=== PATIENT | male | born 1950 | race Two or more races ===

== ENCOUNTER → 2017-07-06 | Outpatient (CLI) | payer OTHER, MEDICARE | LOC: BHFA 09:15 | PROVIDERS: ATTEND Internal Medicine Cardiovascular Disease | DX: R01.1 Cardiac murmur, unspecified (principal); I10 Essential (primary) hypertension ==

== ENCOUNTER 2017-08-11 10:12 | Inpatient (IN) | payer OTHER, MEDICARE ==
--- NOTE | 2017-08-11 10:38 | EDPHY ---
HPI/HX/ROS/PE/MDM Narrative: CHIEF COMPLAINT: Shortness of breath HPI: The patient is an anticoagulated (Warfarin) 67 y/o male with a history of a-fib , pacemaker/defibrillator, CHF, and cardiomyopathy complaining of shortness of breath onset yesterday. He was recently placed on Indomethacin for gout. However , after taking Indomethacin he noticed increased edema, so he decided to see his debeader, Dr. Bedolla, on Monday, 2 days ago. At this time, Dr. Bedolla increased his Lasix prescription from 40mg BID to 80mg BID. Yesterday, the patient started to take the increased dosage of Lasix and subsequently became short of breath. This shortness of breath feels moderately similar to prior a-fib episodes. Denies cough, chest pain, numbness, paresthesias, abdominal pain, urinary or bowel complaints, fever. REVIEW OF SYSTEMS: Aside from elements discussed in the HPI, a comprehensive 10-point review of systems was reviewed and is negative. PMH: A-fib, pacemaker/defibrillator, CHF, cardiomyopathy SOCIAL HISTORY: Family at bedside, lives in [place], [facility] PHYSICAL EXAM: General: Patient is alert. ENT: Eyes are normal to inspection. ENT inspection normal. Neck: Normal inspection. Full range of motion. Respiratory: No respiratory distress. Breath sounds normal bilaterally. Cardiovascular: Regular rate and rhythm. Strong peripheral pulses. Normal cap refill. Abdomen: The abdomen is nontender to palpation. There are no peritoneal signs. There are normal bowel sounds. Back: Normal to inspection. No tenderness to palpation. Skin: Normal color. No rash. Warm and dry. Extremities: Bilateral 1-2+ pedal edema. Full range of motion. Neuro: Oriented x3. Normal motor function. Normal sensory function. ED Course: 1038: EKG was ordered and interpreted by myself. Please see [employer] system for official reading. 1206: Reassessed patient and discussed imaging and laboratory findings.The patient has an elevated BNP of 1450. Echocardiogram ordered. 1301: Consulted with Dr. Soto, debeader, regarding this patient. He reports that the echo reveals elevated right-sided heart pressures. He agrees to consult on this patient during his admission. 1303: Reassessed patient and discussed imaging and laboratory findings. He is comfortable with plan for admission. 1329: Consulted with hospitalist service, Dr. Oglesby accepts admission of this patient for patient's CHF exacerbation. MDM: This patient presents with signs and symptoms concerning for volume overload/ CHF exacerbation. His echo shows acute worsening of pulmonary HTN, but PE seems unlikely as d-dimer is negative and patient is anticoagulated. Cardiology recommends admission to the hospital for further workup and diuresis. - Data Points Imaging Results: Imaging Impressions Chest X-Ray 08/11/17 11:14 Impression: 1. Cardiomegaly and pulmonary venous hypertension. No sunny failure. 2. Bronchitis versus peribronchial cuffing due to early interstitial edema. Imaging: I viewed and interpreted images myself Laboratory Results: Laboratory Results 08/11/17 10:44 08/11/17 10:44 08/11/17 08/11/17 08/11/17 10:44 10:44 10:44 WBC RBC Hgb Hct MCV MCH MCHC RDW Plt Count MPV Neut % (Auto) Lymph % (Auto) [place] % (Auto) Eos % (Auto) Baso % (Auto) Nucleat RBC Rel Count Absolute Neuts (auto) Absolute Lymphs (auto) Absolute Monos (auto) Absolute Eos (auto) Absolute Basos (auto) Absolute Nucleated RBC Immature Gran % Immature Gran # PT INR APTT D-Dimer Cancelled Sodium 146 mEq/L H mEq/L (135-145) Potassium 3.7 mEq/L mEq/L (3.3-5.0) Chloride 103 mEq/L mEq/L (97-110) Carbon Dioxide 29 mEq/l mEq/l (22-31) Anion Gap 14 mEq/L mEq/L (8-16) BUN 25 mg/dL H mg/dL (7-23) Creatinine 1.3 mg/dL mg/dL (0.7-1.3) Estimated GFR 55 Glucose 118 mg/dL H mg/dL (70-100) Calcium 9.2 mg/dL mg/dL (8.5-10.4) Troponin I < 0.012 ng/mL ng/mL (0.000-0.034) NT-Pro-B Natriuret Pep Cancelled 1450 pg/mL H pg/mL (0-125) 08/11/17 08/11/17 10:44 10:44 WBC 9.04 10^3/uL 10^3/uL (3.80-9.50) RBC 4.95 10^6/uL 10^6/uL (4.40-6.38) Hgb 13.9 g/dL g/dL (13.7-17.5) Hct 43.1 % % (40.0-51.0) MCV 87.1 fL fL (81.5-99.8) MCH 28.1 pg pg (27.9-34.1) MCHC 32.3 g/dL L g/dL (32.4-36.7) RDW 15.4 % H % (11.5-15.2) Plt Count 149 10^3/uL L 10^3/uL (150-400) MPV 11.0 fL fL (8.7-11.7) Neut % (Auto) 76.1 % H % (39.3-74.2) Lymph % (Auto) 12.7 % L % (15.0-45.0) [place] % (Auto) 9.6 % % (4.5-13.0) Eos % (Auto) 1.0 % % (0.6-7.6) Baso % (Auto) 0.4 % % (0.3-1.7) Nucleat RBC Rel Count 0.0 % % (0.0-0.2) Absolute Neuts (auto) 6.87 10^3/uL H 10^3/uL (1.70-6.50) Absolute Lymphs (auto) 1.15 10^3/uL 10^3/uL (1.00-3.00) Absolute Monos (auto) 0.87 10^3/uL H 10^3/uL (0.30-0.80) Absolute Eos (auto) 0.09 10^3/uL 10^3/uL (0.03-0.40) Absolute Basos (auto) 0.04 10^3/uL 10^3/uL (0.02-0.10) Absolute Nucleated RBC 0.00 10^3/uL 10^3/uL (0-0.01) Immature Gran % 0.2 % % (0.0-1.1) Immature Gran # 0.02 10^3/uL 10^3/uL (0.00-0.10) PT 24.2 SEC H SEC (12.0-15.0) INR 2.17 H (0.83-1.16) APTT 38.8 SEC H SEC (23.0-38.0) D-Dimer 0.33 ug/mLFEU ug/mLFEU (0.00-0.50) Sodium Potassium Chloride Carbon Dioxide Anion Gap BUN Creatinine Estimated GFR Glucose Calcium Troponin I NT-Pro-B Natriuret Pep General Time Seen by Provider: 08/11/17 10:34 Initial Vital Signs: Initial Vital Signs Temperature (C) 36.6 C 08/11/17 10:16 Heart Rate 75 08/11/17 10:16 Respiratory Rate 19 08/11/17 10:16 Blood Pressure 140/77 H 08/11/17 10:16 O2 Sat (%) 89 L 08/11/17 10:16 O2 Delivery Mode Nasal Cannula O2 (L/minute) 2 Allergies/Adverse Reactions: indomethacin Allergy (Verified 08/11/17 10:14) Home Medications: Medication Instructions Recorded Atorvastatin Calcium [Lipitor 10 10 mg PO DAILY 08/11/17 mg (*)] Dronedarone HCl [Multaq 400 mg (*)] 400 mg PO BIDMEAL 08/11/17 Mesalamine [Apriso 0.375 gm] 1.5 gm PO DAILY 08/11/17 Metoprolol Succinate Xr [Toprol Xl 50 mg PO DAILY 08/11/17 50 mg (*)] Pantoprazole Sodium [Protonix 40mg 40 mg PO DAILY 08/11/17 (*)] Potassium Cl [Klor-Con 10 meq (RX)] 10 meq PO BID@08/11/17 Warfarin Sodium [Coumadin 1MG (*)] 1.5 mg PO SUMOTUWETHFR@08/11/17 Warfarin Sodium [Coumadin] 1 mg PO SA@08/11/17 Furosemide [Lasix 40 MG (*)] 60 mg PO BID@ #60 tab 08/12/17 predniSONE 20 mg PO DAILY #3 tab 08/12/17 Departure - Departure Disposition: [facility] Inpatient Acute Clinical Impression: Shortness of breath, Pulmonary hypertension CHF exacerbation Qualifiers: Heart failure type: right-sided Qualified Code(s): I50.813 - Acute on chronic right heart failure Condition: Fair Report Scribed for: Marino Davila Report Scribed by: Dina Olguin Date of Report: 08/11/17 Time of Report: 10:44 Physician Review and Approval Statement: Portions of this note were transcribed by an ED scribe. I personally performed the history, physical exam, and medical decision making; and confirm the accuracy of the information in the transcribed note.
--- NOTE | 2017-08-11 10:40 | CPEKG ---
Heart Rate: 75 RR Interval: 800 P-R Interval: 220 QRSD Interval: 102 QT Interval: 460 QTC Interval: 514 P [place]: 226 QRS [place]: -1 T Wave [place]: 120 EKG Severity - ABNORMAL ECG - EKG Impression: INDETERMINATE SUPRAVENTRICULAR RHYTHM EKG Impression: ABNORMAL T, CONSIDER ISCHEMIA, LATERAL LEADS EKG Impression: PROLONGED QT INTERVAL Electronically Signed By: Warner Peterson 16-Aug-2017 11:50:16
[2017-08-11 10:51] LABS: PLATELET COUNT 149 10^3/uL (150-400)
[2017-08-11 10:59] LABS: INR 2.17 (0.83-1.16); PROTIME(PATIENT) 24.2 SEC (12.0-15.0)
--- NOTE | 2017-08-11 14:02 | ECHO ---
[email or web address] [address] Main: [phone] Fax: Transthoracic Echocardiogram Name: DULCE LIU MR#: [id number] Study Date: 08/11/2017 Study Time: 12:39 PM Date of : 1950 Age: 67 year(s) Height: 180.3 cm (71 in.) Weight: 86.18 kg (190 lb.) BSA: 2.06 m2 Gender: Male Examination: Limited Echo Indication: New SOB, Pacemaker/Defibrillator Image Quality: Contrast: Requested by: Marino Davila BP: 121 mmHg/98 mmHg Heart Rate: Rhythm: Indication: New SOB, Pacemaker/Defibrillator Procedure Staff Refrigerator Room Clerk: Parmjit Garcia RDCS Reading Physician: Dwain Robison MD Requesting Provider: Conclusions: No pericardial effusion. Concentric asymmetric left ventricular hypertrophy. Pacemaker in the right ventricle. Estimated right ventricular systolic pressure 47 mm of mercury significantly changed from July 06. Normal RV systolic function. Measurements: Chambers Valvular Assessment AV/MV Valvular Assessment TV/PV Normal Normal Normal Name Value Range Name Value Range Name Value Range IVSd (2D): 1.4 cm (0.6 cm-1.1 TR Vmax: 3.24 mm/s ( - ) cm) TR PGmax: 42 mmHg ( - ) LVDd (2D): 4.0 cm (4.2 cm-5.9 syst. PAP: 47 mmHg ( - ) cm) LVDs (2D): 2.8 cm (2.1 cm-4 cm) LVPWd (2D): 1.2 cm (0.6 cm-1 cm) LVEF (2D): 57 (>=54 %) Continued Measurements: Valvular Assessment TV/PV Name Value CVP (est.): 5 mmHg Findings: Left Ventricle: Normal size left ventricle. Normal global systolic LV function. EF is 57 %. There is known severe asymmetrical LVH noted.. Right Ventricle: Patient: DULCE ILU Study Date: 08/11/2017 Page 1 of 2 12:39 PM There is a pacemaker lead noted in the right ventricle. Flattened interventricular septum consistent with right ventricular pressure and/or volume overload free wall. Left Atrium: The left atrium is mildly dilated. Aortic Valve: Mild aortic valve regurgitation is present. Tricuspid Valve: The previous exam of 07/06/17 displayed a RVSP of 25 mmHg. The current RVSP is 47 mmHg.. Exam Comments: This is a limited echo to evaluate LV/RV function. Compared to the previous exam of 07/06/17 the pulmonary pressures have increased to 47 mmHg from 25 mmHg.. (No Signature Object) Patient: DULCE LIU Study Date: 08/11/2017 Page 2 of 2 12:39 PM [id number]
[2017-08-11] MEDS ORDERED: FUROSEMIDE 100 MG/10 ML VIAL IVP ONE (15:10)
[2017-08-11] MEDS ORDERED: oxyCODONE IR 5 MG TAB PO PRN (15:31)
[2017-08-11] MEDS ORDERED: ACETAMINOPHEN 325 MG TAB PO PRN (15:31)
[2017-08-11] MEDS ORDERED: ALBUTEROL 3 ML DEYVIAL IH PRN (15:31)
--- NOTE | 2017-08-11 15:52 | PDGENHP ---
History and Physical - Chief Complaint SOB - History of Present Illness : The patient is an anticoagulated (Warfarin) 67 y/o male with a history of a-fib , pacemaker/defibrillator, CHF, and cardiomyopathy complaining of shortness of breath onset yesterday. He was recently placed on Indomethacin for gout. However , after taking Indomethacin he noticed increased edema, so he decided to see his wellness trainer, Dr. Bedolla, on Monday, 2 days ago. At this time, Dr. Bedolla increased his Lasix prescription from 40mg BID to 80mg BID. Despite the increase the pt c/o SOB, increased leg swelling and increased abd distention. Cards has seen the patient in the ER and he will be admitted for diuresis and further mgmt. Denies cough, chest pain, numbness, paresthesias, abdominal pain, urinary or bowel complaints, fever. PMH: A-fib, pacemaker/defibrillator, CHF, cardiomyopathy SOCIAL HISTORY: Family at bedside, lives in [place], retired FMHX: non contributory Echo: shows increased right sided pressure of 47mmHg CXR c/w pulm edema (personally interpreted) EKG: prolonged QT History Information - Allergies/Home Medication List Allergies/Adverse Reactions: indomethacin Allergy (Verified 08/11/17 10:14) Home Medications: Atorvastatin Calcium [Lipitor 10 mg (*)] 10 mg PO DAILY 08/11/17 [Last Taken ] Dronedarone HCl [Multaq 400 mg (*)] 400 mg PO BIDMEAL 08/11/17 [Last Taken 08/11] Furosemide [Lasix 40 MG (*)] 40 mg PO BID@08/11/17 [Last Taken 08/11/17 09 :00] Lisinopril [Zestril 20 mg (*)] 20 mg PO DAILY 08/11/17 [Last Taken 08/11/17] Mesalamine [Apriso 0.375 gm] 1.5 gm PO DAILY 08/11/17 [Last Taken 08/11/17] Metoprolol Succinate Xr [Toprol Xl 50 mg (*)] 50 mg PO DAILY 08/11/17 [Last Taken 08/11/17] Pantoprazole Sodium [Protonix 40mg (*)] 40 mg PO DAILY 08/11/17 [Last Taken ] Potassium Cl [Klor-Con] 10 meq PO BID@08/11/17 [Last Taken 08/11/17 09:00] Warfarin Sodium [Coumadin 2.5MG (*)] 2.5 mg PO SUMOTUWETHFR@08/11/17 [Last Taken 08/10/17] Warfarin Sodium [Coumadin 2MG (*)] 2 mg PO SA@08/11/17 [Last Taken 08/05/17] I have personally reviewed and updated: medical history, social history - Social History Smoking Status: Never smoked Review of Systems Review of Systems: ROS: 10pt was reviewed & negative except for what was stated in HPI & below Physical Exam Physical Exam: Temp Pulse Resp BP Pulse Ox 36.5 C 101 H 20 121/71 H 92 08/11/17 12:00 08/11/17 13:55 08/11/17 13:55 08/11/17 13:55 08/11/17 13:55 O2 (L/minute) 2 Constitutional: no apparent distress Eyes: PERRL, EOMI Ears, Nose, Mouth, Throat: moist mucous membranes Cardiovascular: JVD, edema Respiratory: no respiratory distress, reduced air movement Gastrointestinal: normoactive bowel sounds, distension Skin: warm Musculoskeletal: full muscle strength Neurologic: AAOx3 Psychiatric: interacting appropriately, not anxious, not encephalopathic Lymph, Heme, Immunologic: No petechiae Lab Data & Imaging Review 08/11/17 10:44 08/11/17 10:44 WBC 9.04 10^3/uL (3.80-9.50) 08/11/17 10:44 RBC 4.95 10^6/uL (4.40-6.38) 08/11/17 10:44 Hgb 13.9 g/dL (13.7-17.5) 08/11/17 10:44 Hct 43.1 % (40.0-51.0) 08/11/17 10:44 MCV 87.1 fL (81.5-99.8) 08/11/17 10:44 MCH 28.1 pg (27.9-34.1) 08/11/17 10:44 MCHC 32.3 g/dL (32.4-36.7) L 08/11/17 10:44 RDW 15.4 % (11.5-15.2) H 08/11/17 10:44 Plt Count 149 10^3/uL (150-400) L 08/11/17 10:44 MPV 11.0 fL (8.7-11.7) 08/11/17 10:44 Neut % (Auto) 76.1 % (39.3-74.2) H 08/11/17 10:44 Lymph % (Auto) 12.7 % (15.0-45.0) L 08/11/17 10:44 [place] % (Auto) 9.6 % (4.5-13.0) 08/11/17 10:44 Eos % (Auto) 1.0 % (0.6-7.6) 08/11/17 10:44 Baso % (Auto) 0.4 % (0.3-1.7) 08/11/17 10:44 Nucleat RBC Rel Count 0.0 % (0.0-0.2) 08/11/17 10:44 Absolute Neuts (auto) 6.87 10^3/uL (1.70-6.50) H 08/11/17 10:44 Absolute Lymphs (auto) 1.15 10^3/uL (1.00-3.00) 08/11/17 10:44 Absolute Monos (auto) 0.87 10^3/uL (0.30-0.80) H 08/11/17 10:44 Absolute Eos (auto) 0.09 10^3/uL (0.03-0.40) 08/11/17 10:44 Absolute Basos (auto) 0.04 10^3/uL (0.02-0.10) 08/11/17 10:44 Absolute Nucleated RBC 0.00 10^3/uL (0-0.01) 08/11/17 10:44 Immature Gran % 0.2 % (0.0-1.1) 08/11/17 10:44 Immature Gran # 0.02 10^3/uL (0.00-0.10) 08/11/17 10:44 PT 24.2 SEC (12.0-15.0) H 08/11/17 10:44 INR 2.17 (0.83-1.16) H 08/11/17 10:44 APTT 38.8 SEC (23.0-38.0) H 08/11/17 10:44 D-Dimer 0.33 ug/mLFEU (0.00-0.50) 08/11/17 10:44 Sodium 146 mEq/L (135-145) H 08/11/17 10:44 Potassium 3.7 mEq/L (3.3-5.0) 08/11/17 10:44 Chloride 103 mEq/L (97-110) 08/11/17 10:44 Carbon Dioxide 29 mEq/l (22-31) 08/11/17 10:44 Anion Gap 14 mEq/L (8-16) 08/11/17 10:44 BUN 25 mg/dL (7-23) H 08/11/17 10:44 Creatinine 1.3 mg/dL (0.7-1.3) 08/11/17 10:44 Estimated GFR 55 08/11/17 10:44 Glucose 118 mg/dL (70-100) H 08/11/17 10:44 Calcium 9.2 mg/dL (8.5-10.4) 08/11/17 10:44 Troponin I < 0.012 ng/mL (0.000-0.034) 08/11/17 10:44 NT-Pro-B Natriuret Pep 1450 pg/mL (0-125) H 08/11/17 10:44 Assessment & Plan Assessment: #CHF exacerbation (Acute) #Pulmonary hypertension (Acute) #Acute Respiratory Failure #Pedal Edema #Prolonged QT #Afib with PPM #chronic AC with adequate INR Plan Admit IV Lasix appropriate home meds avoid meds that cause QT prolongation Coumadin Full code
--- NOTE | 2017-08-11 16:04 | GCON ---
[f rep st] CONSULTATION CARDIOLOGY CONSULTATION. DATE OF CONSULTATION: 08/11/2017 REASON FOR CONSULTATION: We were asked by Dr. Davila of [facility] to evaluate the patient for his congestive heart failure. HISTORY OF PRESENT ILLNESS: The patient is a 67-year-old male who is being admitted due to acute masha stolic CHF. He was recently seen by his PCPs office for pain in his right foot and was diagnosed wit h gout. He was given indomethacin for this. After that, he noted a 5-6 pound weight gain with lower extremity edema and dyspnea on exertion. He saw Dr. Bedolla in clinic on August 09. At that time, Dr Jerrod Bedolla increased his Lasix from 40 twice daily to 80 twice daily. Despite this increase, he starte d to note worsening dyspnea, edema and weight gain. [facility] On arrival, he was noted to be hypoxic with an O2 saturation of 84%. He is now being admitted f or treatment of his acute diastolic CHF. Other past medical history is inclusive of paroxysmal atria l fibrillation on warfarin therapy, hypertrophic cardiomyopathy with prophylactic ICD implantation, n onobstructive coronary artery disease, hypertension, dyslipidemia, aortic insufficiency. He denies any other changes to his health. He has not had any fever, chills, changes to his diet or missing medications. PAST MEDICAL HISTORY: 1. Hypertrophic cardiomyopathy with a prophylactic ICD. 2. Hypertension. 3. Dyslipidemia. 4. Aortic insufficiency. 5. Hypertension. 6. Paroxysmal atrial fibrillation. MEDICATIONS: Outpatient medications include warfarin, ferrous sulfate, Lasix, Lipitor, lisinopril, M ultaq, potassium, Protonix, metoprolol succinate 50 mg p.o. daily. ALLERGIES: Now listed as indomethacin. FAMILY HISTORY: Arrhythmias, hypertension, dyslipidemia, and MIs. SOCIAL HISTORY: Patient is . His is present in the room. His daughter is also present. He denies any alcohol or tobacco use. REVIEW OF SYSTEMS: As per HPI. A complete 10-point review of systems was obtained and is negative e xcept for what is dictated. PHYSICAL EXAMINATION: VITAL SIGNS: BP of 121/71, heart rate of 101, respirations 20, O2 saturation 92% on room air, temperature of 97.7 degrees Fahrenheit. GENERAL: He is a very pleasant male in no apparent distress. HEENT: Normocephalic, atraumatic. Eyes are PERRL without scleral icterus. HEAR T: Regular rate and rhythm without rubs, gallops, or murmurs. LUNGS: Mildly diminished without rho nchi. Minimal crackles at bases. ABDOMEN: Distended, nontender with normoactive bowel sounds. SKI N: Warm and dry with mild to moderate pedal and ankle edema. PSYCH: Normal mood and affect. : No [place] present. MUSCULOSKELETAL: Without any gross deformities present. LABORATORY DATA: CBC with WBC 9.04, hemoglobin 13.9, hematocrit 43.1, platelet count 149. INR of 2. 17. BMP with sodium 146, potassium 3.7, chloride 103, CO2 29, BUN 25, creatinine 1.3, glucose of 118 . NT-ProBNP of 1450. Troponin less than 0.012. A 12-lead ECG personally interpreted demonstrates si nus rhythm with a prolonged MT interval with a first-degree AV block. QTc prolonged at 514, diffuse ST-T wave abnormalities and LAFB present. Chest x-ray images personally reviewed, shows cardiomegaly with pulmonary venous hypertension and interstitial edema. 08/11/2017, echo shows normal LVEF, conc entric asymmetric left ventricular hypertrophy, pacer in the right ventricle. Estimated RVSP of 47 m mHg which is a significant change from July 06 echo from our office. I spoke with Dr. Davila ab out patient's care. IMPRESSION AND PLAN: 1. Diastolic congestive heart failure. Patient presents with diastolic congestive heart failure as evidenced by now pulmonary hypertension, pulmonary edema, peripheral edema, jugular venous distention , rales, abdominal distention and worsening dyspnea on exertion. His BNP is also elevated at this ti me. At this time, we will plan to admit patient for IV diuresis. He has been on p.o. Lasix and pote ntially that could be his outpatient medicine. However, given his abdominal distention it maybe that he is not able to absorb p.o. Lasix as well and potentially he could be switched to Demadex for his outpatient regimen. He is advised to avoid non-steroidal anti-inflammatories for treatment of gout i n the future. 2. He has known coronary artery disease with a cardiac catheterization in 2016. This showed no sign ificant blockages. He can continue medical management at this point. 3. Paroxysmal atrial fibrillation. His ECG thus far shows sinus rhythm. He is managed with rhythm control with Multaq and anticoagulation with warfarin. 4. Hypertension. Blood pressures are mild to moderately elevated. He may need adjustment of his me dication regimen prior to discharge. We will monitor his blood pressure serially. 5. New onset pulmonary hypertension. We discussed possible etiology is untreated sleep apnea. This can be worked up as an outpatient. 6. Mild aortic insufficiency. He has mild aortic insufficiency, which can be followed with serial e choes in the future. 7. Dyslipidemia. His home atorvastatin may be continued as at present. 8. The patient will require inpatient status for diuresis and optimization of medical therapies. /[id number]/MODL
--- NOTE | 2017-08-11 17:40 | PDMN ---
Medical Necessity Medical necessity: C/M review: est. > 2 MN LOS for eval and TX of acute - CHF exacerbation, pulmonary hypertension, respiratory failure, pedal edema, prolonged QT requiring Cardiology consult, ongoing IV Lasix, avoid medications that cause QT prolongation, cardiac monitoring, pulse oximetry, supplemental O2 , comorbid history of atrial fibrillation with permanent pacemaker / defibrillator, chronic anticoagulation with adequate INR, CHF, cardiomyopathy per H/P.
[2017-08-11] MEDS: POTASSIUM CL 10 MEQ TAB PO SCH (18:25)
[2017-08-11] MEDS: DRONEDARONE HCL 400 MG TAB PO SCH (18:26)
[2017-08-11] MEDS ORDERED: WARFARIN SODIUM 2.5 MG TAB PO SCH (21:00)
[2017-08-11] MEDS ORDERED: WARFARIN SODIUM 1 MG TAB PO SCH (21:00)
[2017-08-12 04:24] LABS: PLATELET COUNT 153 10^3/uL (150-400)
[2017-08-12] MEDS: DRONEDARONE HCL 400 MG TAB PO SCH (08:50)
[2017-08-12] MEDS: POTASSIUM CL 10 MEQ TAB PO SCH (08:50)
[2017-08-12] MEDS: FUROSEMIDE 100 MG/10 ML VIAL IVP SCH ×2 (08:52→15:53)
[2017-08-12] MEDS ORDERED: ATORVASTATIN CALCIUM 10 MG TAB PO SCH (09:00)
[2017-08-12] MEDS ORDERED: MESALAMINE PO SCH (09:00)
[2017-08-12] MEDS ORDERED: PANTOPRAZOLE SODIUM 40 MG TAB PO SCH (09:00)
[2017-08-12] MEDS ORDERED: METOPROLOL SUCCINATE XR 50 MG TAB PO SCH (09:00)
[2017-08-12] MEDS ORDERED: LISINOPRIL 20 MG TAB PO SCH (09:00)
[2017-08-12 11:30] LABS: INR 2.15 (0.83-1.16)
[2017-08-12 12:01] VITALS: BP 102/62
--- NOTE | 2017-08-12 12:09 | SOAPPROG ---
[facility] Progress Note Assessment/Plan: Assessment: Plan: 08/12/17 12:08 1. Diastolic heart failure The patient is doing very well today. He wants to go home at this point time. He is going to follow up with Dr. Bedolla or Kimberly Barrios at [facility] He had negative coronary angiogram in 2016. I have discussed his case with the patient I have talked to the hospitalist. We are going to sign off and the patient is being sent home today. I have answered all the patient's questions. There is no charge for this visit. Objective: Vital Signs Temp Pulse Resp BP Pulse Ox 36.6 C 75 18 102/62 93 08/12/17 12:00 08/12/17 12:00 08/12/17 12:00 08/12/17 12:00 08/12/17 12:00 Laboratory Results 08/12/17 00:40 08/12/17 00:40 08/11/17 08/12/17 08/13/17 05:59 05:59 05:59 Intake Total 500 500 Output Total 1800 950 Balance -1300 -450 PT 24.0 SEC (12.0-15.0) H 08/12/17 10:13 INR 2.15 (0.83-1.16) H 08/12/17 10:13 ICD10 Worksheet Patient Problems: Problems Problem Status Onset CHF exacerbation Acute Pulmonary hypertension Acute Shortness of breath Acute
[2017-08-12] MEDS ORDERED: predniSONE 20 MG TAB PO ONE (13:38)
--- NOTE | 2017-08-12 13:53 | PDDCSUM ---
Discharge Summary Discharge Summary: The patient is a 67 yo male who was admitted with volume overload. He was diuresed with IV diuretics. He was kept overnight and is doing better, although still with volume overload. He was seen by Cardiology this morning and has requested discharge. Given some improvement he is being discharged home with Lasix 60mg bid (His home regimen is 40mg BID) and will f/u with his PCP and with [facility] next week. He also has gout of the RLE and he is being treated with a short course of Prednisone. No other changes to his home medication regimen were made. DDx: #CHF exacerbation (Acute) #Pulmonary hypertension (Acute) #Acute Respiratory Failure #Pedal Edema #Prolonged QT #Afib with PPM #chronic AC with adequate INR Exam: NAD AAOX3 RRR DECREASE LUNG SOUNDS 1-2+ LE EDEMA Meds: see med rec f/u: per above total time spent on d/c is 35 mins
[2017-08-12] MEDS ORDERED: WARFARIN SODIUM 1 MG TAB PO SCH (21:00)
[2017-08-12] MEDS ORDERED: WARFARIN SODIUM 2 MG TAB PO SCH (21:00)
== END 2017-08-12 15:16 | disposition home or self-care (01) | DRG 291 ==
LOC: OBSVTOIN 13:34 → F2W 17:05
PROVIDERS: ADMIT Family Medicine; ATTEND Family Medicine
DX: I50.33 Acute on chronic diastolic (congestive) heart failure (principal); J96.00 Acute respiratory failure, unspecified whether with hypoxia or hypercapnia; I42.2 Other hypertrophic cardiomyopathy; I27.20 Pulmonary hypertension, unspecified; I45.81 Long QT syndrome; I48.0 Paroxysmal atrial fibrillation; E78.5 Hyperlipidemia, unspecified; I10 Essential (primary) hypertension; I35.1 Nonrheumatic aortic (valve) insufficiency; Z79.01 Long term (current) use of anticoagulants; Z95.810 Presence of automatic (implantable) cardiac defibrillator
CPT/HCPCS: 36415-PO; 80048-PO; J1940; J7512

== ENCOUNTER 2017-09-12 10:07 | Inpatient (IN) | payer OTHER, MEDICARE ==
--- NOTE | 2017-09-12 10:16 | EDPHY ---
H & P Time Seen by Provider: 09/12/17 10:15 HPI/ROS: CHIEF COMPLAINT: Shortness of breath HISTORY OF PRESENT ILLNESS: Patient was discharged 08/12/2017 with congestive heart failure exacerbation. Today he is sent from the [facility] office with shortness of breath and 84% saturation in the office. He started having a cough and some chills yesterday and felt cold. Yesterday he was very tired and felt like he could not catch his breath and had to stopped after even about 10 steps. However today he feels much worse in his difficulty breathing is severe. It was associated with an episode of atrial fibrillation and a little bit of chest pressure, but he could not even take a shower today without having to bend over and hold himself up with his hands and catch his breath. Not associated with hemoptysis or fever or leg swelling. He went to [facility] and was sent here for further evaluation, his saturation of 90% is on 2 L nasal cannula. REVIEW OF SYSTEMS: Eye: no change in vision ENT: no sore throat Cardiac: HPI Pulmonary: HPI Abdomen: no vomiting, diarrhea, abdominal pain Musculoskeletal: no back pain Skin: no rash Neuro: no headache Constitutional: no fever : no urinary symptoms A comprehensive 10 point review of systems is otherwise negative aside from elements mentioned in the history of present illness. PAST MEDICAL HISTORY: History includes atrial fibrillation with pacemaker defibrillator, cardiomyopathy, hypertension, ulcerative colitis, reflux disease. On warfarin. Social history: Nonsmoker General Appearance: Alert and conversant, cooperative. Eyes: No scleral icterus. ENT, Mouth: Normal mucous membranes. Respiratory: Crackles right lower lung greater than left. Cardiovascular: Regular rate and rhythm. Gastrointestinal: Abdomen is soft and non tender. Neurological: Alert, face symmetric, normal motor and sensory in extremities. Skin: Warm and dry, no rashes. Musculoskeletal: Trace pedal edema but no calf tenderness. Psychiatric: Not agitated. Emergency Department course/MDM: Discussed with Shireen Allen from [facility] at 9:55 a.m. Prior to the patient's arrival. Suspicion for pneumonia given cough and chills and asymmetric lung sounds. Could also be CHF. Plan for sepsis screening and chest x-ray and labs. If pneumonia would need to treat for H cap. 1202: Will treat initially with cefepime 2 g IV for possible healthcare associated pneumonia, procalcitonin and BNP and troponin are pending at this time. Seen by Kj in ED who requested diuresis and no antibiotics, admission hospitalist service. Smoking Status: Never smoked Constitutional: Initial Vital Signs Temperature (C) 36.7 C 09/12/17 10:08 Heart Rate 75 09/12/17 10:08 Respiratory Rate 20 09/12/17 10:08 Blood Pressure 119/71 09/12/17 10:08 O2 Sat (%) 92 09/12/17 10:08 O2 Delivery Mode Nasal Cannula O2 (L/minute) 2 Allergies/Adverse Reactions: indomethacin Allergy (Verified 09/12/17 11:17) fluid retention NSAIDS (Non-Steroidal Anti-Inflamma Allergy (Verified 09/12/17 11:17) Home Medications: Medication Instructions Recorded Atorvastatin Calcium [Lipitor 10 10 mg PO DAILY18 08/11/17 mg (*)] Dronedarone HCl [Multaq 400 mg (*)] 400 mg PO BIDMEAL 08/11/17 Mesalamine [Apriso 0.375 gm] 1.5 gm PO DAILY 08/11/17 Metoprolol Succinate Xr [Toprol Xl 50 mg PO DAILY 08/11/17 50 mg (*)] Pantoprazole Sodium [Protonix 40mg 40 mg PO DAILY18 08/11/17 (*)] Potassium Cl [Klor-Con 10 meq (RX)] 10 meq PO BID@08/11/17 Warfarin Sodium [Coumadin 1MG (*)] 1.5 mg PO SUMOWETHFR@08/11/17 Warfarin Sodium [Coumadin] 1 mg PO TUSA@21 08/11/17 Furosemide [Lasix 40 MG (*)] 60 mg PO BID@ #60 tab 08/12/17 Lisinopril [Zestril 20 mg (*)] 20 mg PO DAILY 09/12/17 Medical Decision Making - Diagnostics Imaging Results: Imaging Impressions Chest X-Ray 09/12/17 10:23 Impression: 1. Mild prominent interstitial markings suspected at the lung bases. Consider dependent interstitial edema. 2. Stable mild cardiomegaly. Imaging: I viewed and interpreted images myself Differential Diagnosis: Differential diagnosis considered for shortness of breath including but not limited to pulmonary infectious process, COPD, asthma, pulmonary embolus and congestive heart failure. Consult/Admit Bed Type: [facility] [place] [address]4 - Data Points Laboratory Results: Laboratory Results 09/12/17 10:50 09/12/17 10:50 09/12/17 09/12/17 09/12/17 10:50 10:50 10:50 WBC RBC Hgb Hct MCV MCH MCHC RDW Plt Count MPV Neut % (Auto) Lymph % (Auto) Throckmorton % (Auto) Eos % (Auto) Baso % (Auto) Nucleat RBC Rel Count Absolute Neuts (auto) Absolute Lymphs (auto) Absolute Monos (auto) Absolute Eos (auto) Absolute Basos (auto) Absolute Nucleated RBC Immature Gran % Immature Gran # PT 27.8 SEC H SEC (12.0-15.0) INR 2.60 H (0.83-1.16) APTT 50.5 SEC H SEC (23.0-38.0) VBG Lactic Acid Sodium 142 mEq/L mEq/L (135-145) Potassium 3.6 mEq/L mEq/L (3.3-5.0) Chloride 104 mEq/L mEq/L (97-110) Carbon Dioxide 27 mEq/l mEq/l (22-31) Anion Gap 11 mEq/L mEq/L (8-16) BUN 17 mg/dL mg/dL (7-23) Creatinine 0.9 mg/dL mg/dL (0.7-1.3) Estimated GFR > 60 Glucose 105 mg/dL H mg/dL (70-100) Calcium 9.0 mg/dL mg/dL (8.5-10.4) Total Bilirubin 2.2 mg/dL H mg/dL (0.1-1.4) Conjugated Bilirubin 0.4 mg/dL mg/dL (0.0-0.5) Unconjugated Bilirubin 1.8 mg/dL H mg/dL (0.0-1.1) Troponin I 0.027 ng/mL ng/mL (0.000-0.034) NT-Pro-B Natriuret Pep 3370 pg/mL H pg/mL (0-125) Procalcitonin Pending 09/12/17 09/12/17 10:50 10:50 WBC 9.90 10^3/uL H 10^3/uL (3.80-9.50) RBC 4.86 10^6/uL 10^6/uL (4.40-6.38) Hgb 13.7 g/dL g/dL (13.7-17.5) Hct 42.0 % % (40.0-51.0) MCV 86.4 fL fL (81.5-99.8) MCH 28.2 pg pg (27.9-34.1) MCHC 32.6 g/dL g/dL (32.4-36.7) RDW 16.2 % H % (11.5-15.2) Plt Count 151 10^3/uL 10^3/uL (150-400) MPV 10.2 fL fL (8.7-11.7) Neut % (Auto) 78.6 % H % (39.3-74.2) Lymph % (Auto) 11.5 % L % (15.0-45.0) Throckmorton % (Auto) 8.6 % % (4.5-13.0) Eos % (Auto) 0.7 % % (0.6-7.6) Baso % (Auto) 0.2 % L % (0.3-1.7) Nucleat RBC Rel Count 0.0 % % (0.0-0.2) Absolute Neuts (auto) 7.78 10^3/uL H 10^3/uL (1.70-6.50) Absolute Lymphs (auto) 1.14 10^3/uL 10^3/uL (1.00-3.00) Absolute Monos (auto) 0.85 10^3/uL H 10^3/uL (0.30-0.80) Absolute Eos (auto) 0.07 10^3/uL 10^3/uL (0.03-0.40) Absolute Basos (auto) 0.02 10^3/uL 10^3/uL (0.02-0.10) Absolute Nucleated RBC 0.00 10^3/uL 10^3/uL (0-0.01) Immature Gran % 0.4 % % (0.0-1.1) Immature Gran # 0.04 10^3/uL 10^3/uL (0.00-0.10) PT INR APTT VBG Lactic Acid 1.4 mmol/L mmol/L (0.7-2.1) Sodium Potassium Chloride Carbon Dioxide Anion Gap BUN Creatinine Estimated GFR Glucose Calcium Total Bilirubin Conjugated Bilirubin Unconjugated Bilirubin Troponin I NT-Pro-B Natriuret Pep Procalcitonin Departure - Departure Disposition: [facility] Inpatient Acute Clinical Impression: Hypoxemia Dyspnea Qualifiers: Dyspnea type: dyspnea on exertion Qualified Code(s): R06.09 - Other forms of dyspnea Condition: Fair
--- NOTE | 2017-09-12 10:53 | CPEKG ---
Heart Rate: 76 RR Interval: 789 P-R Interval: 192 QRSD Interval: 100 QT Interval: 448 QTC Interval: 504 P Columbus: 0 QRS [place]: -4 T Wave [place]: 145 EKG Severity - ABNORMAL ECG - EKG Impression: ATRIAL-PACED COMPLEXES EKG Impression: LVH WITH SECONDARY REPOLARIZATION ABNORMALITY EKG Impression: BORDERLINE PROLONGED QT INTERVAL Electronically Signed By: Jimy Jones 12-Sep-2017 12:52:53
[2017-09-12 11:01] LABS: PLATELET COUNT 151 10^3/uL (150-400)
[2017-09-12 11:09] LABS: INR 2.6 (0.83-1.16); PROTIME(PATIENT) 27.8 SEC (12.0-15.0)
[2017-09-12] MEDS ORDERED: CEFEPIME HCL 2 GM in NS 100 ML IV ONE (12:01)
[2017-09-12] MEDS ORDERED: FUROSEMIDE 100 MG/10 ML VIAL IVP ONE (12:27)
--- NOTE | 2017-09-12 12:54 | GHP ---
[f rep st] HISTORY AND PHYSICAL DATE OF ADMISSION: 09/12/2017 CHIEF COMPLAINT: Short of breath. HISTORY OF PRESENT ILLNESS: This is a 67-year-old man who presents with about 1 day of shortness of breath. He has had a nonproductive cough. He did have some chills yesterday. He has a history of h eart failure. Has not changed any of his heart failure medications recently. His weight has stayed stable. He has some lower extremity edema, which is unchanged. He previously had slept in a recline r. He has not had to change the angle of his recliner. He went in to see Shireen Allen today, who sent h im into the ED for further workup as he was found to be hypoxic. PAST MEDICAL/SURGICAL HISTORY: 1. Atrial fibrillation, status post pacemaker. 2. AICD. 3. History of hypertrophic nonobstructive cardiomyopathy myopathy, status post AICD placement for pr imary prevention. 4. History of congestive heart failure. 5. Borderline prolonged QT interval. 6. Appendectomy. 7. Partial nephrectomy due to a cyst. MEDICATIONS: Please see medication reconciliation. ALLERGIES: Indomethacin and NSAIDs. FAMILY HISTORY: Both parents from heart disease. SOCIAL HISTORY: He does not drink or smoke. REVIEW OF SYSTEMS: 10-point review of systems is conducted and is negative, except per HPI. PHYSICAL EXAM: VITAL SIGNS: Blood pressure 119/71, heart rate 75, respiration rate 20, satting 92% on 2 L, reported to be 81% on room air. Temperature is 36.7. GENERAL: The patient is a pleasant ma n who is resting comfortably, in no acute distress. HEENT: Shows him to be normocephalic, atraumati c. CARDIOVASCULAR: Exam shows him to be irregularly irregular. There are no murmurs, rubs, or gall ops. PULMONARY: Exam shows him to be breathing comfortably on oxygen. I do not appreciate any adve ntitious breath sounds. ABDOMEN: Soft, nontender, nondistended. EXTREMITIES: Exam shows trace johnny ateral lower extremity edema. SKIN: Exam shows no rash. : Exam shows no Mahan. NEUROLOGIC: Ex am shows him to be alert and oriented x3. He is moving all extremities. PSYCHIATRIC: Exam shows no rmal mood and affect. LABS: White count is 9.9. INR is 2.6. Lactate is 1.4. Creatinine is 0.9. Total bili is 2.2; unco njugated is 1.8. BNP is 3370. Procalcitonin is pending. DATA: 1. EKG, which I personally viewed and interpreted, shows intermittently paced atrial paced beats. I believe the underlying rhythm is atrial fibrillation. 2. Chest x-ray, which I personally viewed and interpreted, shows bilateral infiltrates. IMPRESSION AND PLAN: 1. Acute hypoxic respiratory failure: Differential here includes pneumonia versus volume overload. Procalcitonin is still pending, which may be helpful. He is not septic. Does not appear to have an acute bacterial pneumonia. I think, at this point, will opt to treat him with Lasix 60 intravenousl y x1 and follow his clinical course. I will follow up on his procalcitonin. I will send a respirato ry pathogen PCR. If he has a fever or any other signs of decompensation, I would immediately start a ntibiotics. If he has a good response to Lasix, that will be helpful in making the diagnosis as well . 2. Atrial fibrillation, status post pacemaker: He is on Multaq as well as metoprolol. Continue his warfarin. INR therapeutic. 3. History of cardiomyopathy, which is hypertrophic nonobstructive cardiomyopathy: He is on a beta- gurmeet for this. He is also on lisinopril, will continue these. 4. Status post automatic implantable cardioverter-defibrillator placement. 5. Code status is full code. /[id number]/MODL
[2017-09-12] MEDS ORDERED: ONDANSETRON DISINTEGRATING 4 MG TAB PO PRN (14:24)
[2017-09-12] MEDS ORDERED: ACETAMINOPHEN 325 MG TAB PO PRN (14:24)
[2017-09-12] MEDS ORDERED: ONDANSETRON 4 MG/2 ML VIAL IVP PRN (14:24)
[2017-09-12] MEDS: POTASSIUM CL 10 MEQ TAB PO SCH (18:42)
[2017-09-12] MEDS: ATORVASTATIN CALCIUM 10 MG TAB PO SCH (18:42)
[2017-09-12] MEDS: PANTOPRAZOLE SODIUM 40 MG TAB PO SCH (18:42)
[2017-09-12] MEDS: DRONEDARONE HCL 400 MG TAB PO SCH (18:42)
[2017-09-12] MEDS ORDERED: WARFARIN SODIUM 1 MG TAB PO SCH (21:00)
[2017-09-13 04:08] LABS: PLATELET COUNT 150 10^3/uL (150-400)
[2017-09-13] MEDS ORDERED: FUROSEMIDE 40 MG TAB PO SCH (09:00)
[2017-09-13] MEDS: METOPROLOL SUCCINATE XR 50 MG TAB PO SCH (10:08)
[2017-09-13] MEDS: LISINOPRIL 20 MG TAB PO SCH (10:09)
[2017-09-13] MEDS: POTASSIUM CL 10 MEQ TAB PO SCH ×2 (10:09→18:39)
[2017-09-13] MEDS: DRONEDARONE HCL 400 MG TAB PO SCH ×2 (10:12→18:39)
--- NOTE | 2017-09-13 12:36 | ASMTCMCOM ---
CM Note CM Note Notes: 09/13/2017 Case Management Note Discussed pt during rounds this morning. Pt admitted for hypoxia with a h/o afib, pacemaker placement and CHF. Pt was living independently with his prior to admission. There are no PT or OT evals ordered at this time. There are no identified case management d/c needs. Case Management d/c poc: anticipating independent with follow up as directed. Case Management available if needs change. Date Signed: 09/13/2017 12:35 PM Electronically Signed By:Sharmila Webb RN
[2017-09-13] MEDS ORDERED: FUROSEMIDE 20 MG/2 ML VIAL IVP ONE (13:00)
[2017-09-13] MEDS ORDERED: FUROSEMIDE 40 MG/4 ML VIAL IVP ONE (14:57)
--- NOTE | 2017-09-13 15:03 | HOSPPROG ---
Hospitalist Progress Note Assessment/Plan: # acute hypoxic resp failure - still desats to 85% on RA - suspect d/t pulm edema # bilat CXR infiltrates - suspect pulm edema; resp panel neg, pct neg - possible viral pna? - cont lasix IV today, follow closely # suspected dCHF exacerbation - unclear trigger - if not improving tomorrow, will repeat echo # pulm htn - was worse (47mmHg) in May than June - FLORECITA? consider PE but on warfarin - could also cause hypoxia # HCM, AICD # htn - cont lisino, metop # AI # paroxysmal a-fib - cont warfarin, metop, dronedarone # colitis - mesalamine Subjective: feels better but still with some MOFFETT Objective: Vital Signs Temp Pulse Resp BP Pulse Ox 36.4 C 75 16 95/54 L 91 L 09/13/17 12:00 09/13/17 12:00 09/13/17 12:00 09/13/17 12:00 09/13/17 12:00 Microbiology 09/12/17 12:35 Respiratory Panel (PCR) - Final Nasal, Sinus - Other No Organism Detected Laboratory Results 09/13/17 03:41 09/13/17 03:41 09/12/17 09/13/17 09/14/17 05:59 05:59 05:59 Intake Total 790 500 Output Total 1425 175 Balance -635 325 PT 27.8 SEC (12.0-15.0) H 09/12/17 10:50 INR 2.60 (0.83-1.16) H 09/12/17 10:50 CXR personally reviewed tele personally reviewed - Physical Exam Constitutional: no apparent distress, appears nourished Eyes: anicteric sclera Ears, Nose, Mouth, Throat: hearing normal Respiratory: no respiratory distress, No expiratory wheeze, No inspiratory crackles, No bronchial breath sounds Gastrointestinal: No distension Genitourinary: No mcgowan in urethra Skin: warm Musculoskeletal: full muscle strength Neurologic: AAOx3 Psychiatric: not anxious ICD10 Worksheet Patient Problems: Problems Problem Status Onset Dyspnea Acute Hypoxemia Acute Chronic Disease Mgmt/Transitional Care Acute CHF exacerbation Acute Shortness of breath Acute Pulmonary hypertension Acute
[2017-09-13] MEDS: MESALAMINE 1.5 GM PO SCH (15:24)
--- NOTE | 2017-09-13 16:29 | PDMN ---
Medical Necessity Medical necessity: Change to IP, as of 09/13/17, per MD; los >2 mn for ongoing management of acute hypoxic respiratory failure & bilateral CXR infiltrates; suspected pulmonary edema, CHF exacerbation & possible viral pneumonia; admit for further workup/monitoring & IV Lasix; per progress note & order 09/13/17
--- NOTE | 2017-09-13 17:07 | PDCARPN ---
Cardiology Progress Note Chief Complaint: Patient is doing better today with less dyspnea Assessment/Plan: Assessment: Patient is a 67 y/o male with a history of CHF (preserved EF), HLP, HTN, hypertrophic cardiomyopathy s/p ICD, and atrial fibrillation (on coumadin) s/p numerous ablations, and ulcerative colitis with flair ups in the remote past ( as well as issues with bleeding) who presented to [facility] ED on 09/12 complaining of worsening dyspnea, nonproductive cough, lower extremity edema, and chills over the last day. He presented to outpatient cardiology and was sent to the ED due to hypoxia (pulse ox in low 80s on room air). Patient reports no changes in his CHF medications and has been compliant with therapy. Patient does report having what he believes to be an episode of atrial fibrillation within the last 2 days as well (reports having 1-2 episodes of atrial fibrillation per month at baseline). Patient's last ECHO was done on 08/11/2017 and showed known asymmetric septal LV hypertrophy, LVEF of 57%, and a RVSP of 47 mmHg (increased from 25 mmHg seen on 07/06/2017). In ED, patient was placed on 2L of O2 and given 60mg IV Lasix. CXR yesterday showed mild interstitial markings at lung bases without evidence of consolidation, effusion, or pneumothorax. Today patient was given 60mg PO of Lasix. He was weaned off oxygen mid-day, but then placed back on it because his sats continued to drop into the 80s with ambulation. CXR done this morning showed no changes, suggesting fluid overload without sunny heart failure. This afternoon, patient reports dyspnea has significantly improved from admission, but hasn't resolved completely. He has been able to walk the hallway with minimal symptoms. The nonproductive cough persists and has been unchanged since admission. Lower extremity edema has improved and he no longer has chills. His BNP is down to < 1,000 from > 3,000 yesterday. No complaints of fever, chest pain/pressure, orthopnea, or palpitations. Patient's blood pressure has mellissa stable since admission (110/70 currently). Plan: (1) Interrogation of ICD to determine if there has been an uptick in the frequency of the atrial fibrillation (2) Would continue therapy on warfarin for history of atrial fibrillation (3) Would continue diuresis as at present (with oral therapy) (4) Maintain therapy on statins for HLP (5) Zestril and Toprol to continue for both HTN and history of atrial fibrillation (6) Multaq therapy should continue for assistance with suppression of atrial fibrillation Subjective: No cardiovascular complaints, but more dyspnea has been noted than "normal" for the patient Reviewed/Discussed With: family, hospitalist Objective: Vital Signs (8 Hrs) Temp Pulse Resp BP Pulse Ox 09/13/17 15:25 36.4 C 76 22 H 108/62 98 09/13/17 15:17 98 09/13/17 15:10 89 L Intake/Output (24 Hrs) 09/12/17 09/13/17 09/14/17 05:59 05:59 05:59 Output Total 150 Balance -150 Output: Urine (ml) 150 Urinal 150 Result Diagrams: 09/13/17 03:41 09/13/17 03:41 Telemetry: atrial pacing - Physical Exam Constitutional: WDWN, healthy appearing, no apparent distress Eyes: PERRL, EOMI Ears, Nose, Mouth, Throat: moist mucous membranes Cardiovascular: regular rate and rhythm, systolic murmur, pulses symmetric bilat , No jugular vein distention Peripheral Pulses: 2+: dorsalis-pedis (R), dorsalis-pedis (L) Respiratory: clear to auscultate bilat, no crackles, no wheezes Skin: no edema Musculoskeletal: no muscular tenderness Neurologic: AAOx3, CN II-XII grossly intact Psychiatric: cooperative, interactive, following commands ICD10 Worksheet Patient Problems: Problems Problem Status Onset Dyspnea Acute Hypoxemia Acute CHF exacerbation Acute Chronic Disease Mgmt/Transitional Care Acute Pulmonary hypertension Acute Shortness of breath Acute
[2017-09-13] MEDS: ATORVASTATIN CALCIUM 10 MG TAB PO SCH (18:38)
[2017-09-13] MEDS: PANTOPRAZOLE SODIUM 40 MG TAB PO SCH (18:39)
[2017-09-13] MEDS: WARFARIN SODIUM 1 MG TAB PO SCH (21:38)
[2017-09-14] MEDS ORDERED: FUROSEMIDE 40 MG TAB PO SCH (09:00)
[2017-09-14] MEDS: METOPROLOL SUCCINATE XR 50 MG TAB PO SCH (09:05)
[2017-09-14] MEDS: LISINOPRIL 20 MG TAB PO SCH (09:08)
[2017-09-14] MEDS: POTASSIUM CL 10 MEQ TAB PO SCH ×2 (09:08→18:40)
[2017-09-14] MEDS: MESALAMINE 1.5 GM PO SCH (09:09)
[2017-09-14] MEDS: DRONEDARONE HCL 400 MG TAB PO SCH ×2 (09:09→18:40)
--- NOTE | 2017-09-14 10:01 | PDCARPN ---
Cardiology Progress Note Chief Complaint: Doing well today. Patient is feeling back to baseline. Good night of sleep. Assessment/Plan: Assessment: 09-14-17 No cardiovascular complaints today. Good sleep overnight. CXR with continued CHF findings (this could be trailing symptoms). Pacer interrogation is pending this morning. Weights are documented as being "higher" than yesterday. IV lasix was converted to PO therapy. No chest pains or pressure. No PND or orthopnea. Patient with uneventful breakfast, sitting up in chair. 09-13-17 Patient is a 67 y/o male with a history of CHF (preserved EF), HLP, HTN, hypertrophic cardiomyopathy s/p ICD, and atrial fibrillation (on coumadin) s/p numerous ablations, and ulcerative colitis with flair ups in the remote past ( as well as issues with bleeding) who presented to [facility] ED on 09/12 complaining of worsening dyspnea, nonproductive cough, lower extremity edema, and chills over the last day. He presented to outpatient cardiology and was sent to the ED due to hypoxia (pulse ox in low 80s on room air). Patient reports no changes in his CHF medications and has been compliant with therapy. Patient does report having what he believes to be an episode of atrial fibrillation within the last 2 days as well (reports having 1-2 episodes of atrial fibrillation per month at baseline). Patient's last ECHO was done on 08/11/2017 and showed known asymmetric septal LV hypertrophy, LVEF of 57%, and a RVSP of 47 mmHg (increased from 25 mmHg seen on 07/06/2017). In ED, patient was placed on 2L of O2 and given 60mg IV Lasix. CXR yesterday showed mild interstitial markings at lung bases without evidence of consolidation, effusion, or pneumothorax. Today patient was given 60mg PO of Lasix. He was weaned off oxygen mid-day, but then placed back on it because his sats continued to drop into the 80s with ambulation. CXR done this morning showed no changes, suggesting fluid overload without sunny heart failure. This afternoon, patient reports dyspnea has significantly improved from admission, but hasn't resolved completely. He has been able to walk the hallway with minimal symptoms. The nonproductive cough persists and has been unchanged since admission. Lower extremity edema has improved and he no longer has chills. His BNP is down to < 1,000 from > 3,000 yesterday. No complaints of fever, chest pain/pressure, orthopnea, or palpitations. Patient's blood pressure has mellissa stable since admission (110/70 currently). Plan: (1) Pacer/ICD interrogation is pending (2) Continue coumadin therapy with pAF history (3) ACEi/BB therapy should continue (4) Multaq for pAF history to continue (5) Ambulation today (6) Outpatient follow up with cardiology - no indications for repeat echo (one month prior) or ETT (about one year ago) Subjective: No cardiovascular complaints today Reviewed/Discussed With: family Objective: Vital Signs (8 Hrs) Temp Pulse Resp BP Pulse Ox 09/14/17 09:05 75 114/69 09/14/17 07:54 36.8 C 75 18 107/65 95 09/14/17 04:00 36.6 C 75 18 104/70 95 Intake/Output (24 Hrs) 09/13/17 09/14/17 09/15/17 05:59 05:59 05:59 Intake Total 780 Output Total 1920 Balance -1140 Intake: Oral (ml) 780 Output: Urine (ml) 1920 Urinal 1920 Other: Weight 84.1 kg Result Diagrams: 09/13/17 03:41 09/14/17 04:08 Telemetry: atrial pacing - Physical Exam Constitutional: WDWN, healthy appearing, no apparent distress Eyes: PERRL, EOMI Ears, Nose, Mouth, Throat: moist mucous membranes Cardiovascular: regular rate and rhythm, pulses symmetric bilat, No jugular vein distention Peripheral Pulses: 2+: dorsalis-pedis (R), dorsalis-pedis (L) Respiratory: clear to auscultate bilat, no crackles, no wheezes Gastrointestinal: normoactive bowel sounds Skin: no edema Musculoskeletal: no muscular tenderness Neurologic: AAOx3, CN II-XII grossly intact Psychiatric: cooperative, interactive, following commands ICD10 Worksheet Patient Problems: Problems Problem Status Onset Dyspnea Acute Hypoxemia Acute CHF exacerbation Acute Chronic Disease Mgmt/Transitional Care Acute Pulmonary hypertension Acute Shortness of breath Acute
[2017-09-14] MEDS ORDERED: FUROSEMIDE 100 MG/10 ML VIAL IVP ONE (13:50)
--- NOTE | 2017-09-14 16:04 | HOSPPROG ---
Hospitalist Progress Note Assessment/Plan: 67M admitted with dyspnea. Likely d/t CHF. Improving with diuresis. Continue lasix IV tonight and tomorrow am, recheck CXR at noon. If off O2 and CXR improving, can be discharged tomorrow. PPM interrogation pending. # acute hypoxic resp failure - still desats to 85% on RA - suspect d/t pulm edema # suspected dCHF exacerbation - improving - IV lasix - recheck CXR tomorrow at noon - ppm interrogation to look for high a-fib burden # bilat CXR infiltrates - suspect this is pulm edema, but could represent a viral pna # pulm htn - was worse (47mmHg) in May than June - FLORECITA? consider PE but on warfarin - could also cause hypoxia # HCM, AICD # htn - cont lisino, metop # AI # paroxysmal a-fib - cont warfarin, metop, dronedarone # colitis - mesalamine Subjective: still feels SOB with ambulation; O2 still low with ambulation Objective: Vital Signs Temp Pulse Resp BP Pulse Ox 36.6 C 75 18 128/93 H 97 09/14/17 15:42 09/14/17 15:42 09/14/17 15:42 09/14/17 15:42 09/14/17 15:42 Laboratory Results 09/14/17 04:08 09/13/17 09/14/17 09/15/17 05:59 05:59 05:59 Intake Total 780 Output Total 1920 Balance -1140 PT 27.8 SEC (12.0-15.0) H 09/12/17 10:50 INR 2.60 (0.83-1.16) H 09/12/17 10:[address] Soto CXR personally reviewed - Physical Exam Constitutional: no apparent distress, appears nourished Cardiovascular: regular rate and rhythym, systolic murmur, No diastolic murmur, No tachycardia, No bradycardia Respiratory: no respiratory distress, no rales or rhonchi, inspiratory crackles (R base), No expiratory wheeze Gastrointestinal: soft, non-tender abdomen, no palpable masses ICD10 Worksheet Patient Problems: Problems Problem Status Onset Dyspnea Acute Hypoxemia Acute Chronic Disease Mgmt/Transitional Care Acute CHF exacerbation Acute Shortness of breath Acute Pulmonary hypertension Acute
[2017-09-14] MEDS: ATORVASTATIN CALCIUM 10 MG TAB PO SCH (18:40)
[2017-09-14] MEDS: PANTOPRAZOLE SODIUM 40 MG TAB PO SCH (18:40)
[2017-09-14] MEDS: WARFARIN SODIUM 1 MG TAB PO SCH (20:54)
[2017-09-15] MEDS ORDERED: FUROSEMIDE 40 MG/4 ML VIAL IVP SCH (08:00)
[2017-09-15] MEDS: METOPROLOL SUCCINATE XR 50 MG TAB PO SCH (08:16)
[2017-09-15] MEDS: LISINOPRIL 20 MG TAB PO SCH (08:17)
[2017-09-15] MEDS: DRONEDARONE HCL 400 MG TAB PO SCH (08:17)
[2017-09-15] MEDS: POTASSIUM CL 10 MEQ TAB PO SCH (08:17)
[2017-09-15] MEDS: MESALAMINE 1.5 GM PO SCH (08:20)
[2017-09-15 08:33] LABS: INR 2.01 (0.83-1.16); PROTIME(PATIENT) 22.8 SEC (12.0-15.0)
[2017-09-15 11:26] VITALS: BP 105/75
--- NOTE | 2017-09-15 14:18 | PDCARPN ---
Cardiology Progress Note Chief Complaint: Patient doing well today. Less dyspnea is noted. Assessment/Plan: Assessment: 09-15-17 Patient doing well today. Less dyspnea is being noted today. CXR with less congestion today. Saturations on room air are more consistently >90%. Given the findings noted yesterday, additional IV lasix was given. Pacer interrogation might suggest that pAF resulted in some of the symptoms noted. 09-14-17 No cardiovascular complaints today. Good sleep overnight. CXR with continued CHF findings (this could be trailing symptoms). Pacer interrogation is pending this morning. Weights are documented as being "higher" than yesterday. IV lasix was converted to PO therapy. No chest pains or pressure. No PND or orthopnea. Patient with uneventful breakfast, sitting up in chair. 09-13-17 Patient is a 67 y/o male with a history of CHF (preserved EF), HLP, HTN, hypertrophic cardiomyopathy s/p ICD, and atrial fibrillation (on coumadin) s/p numerous ablations, and ulcerative colitis with flair ups in the remote past ( as well as issues with bleeding) who presented to [facility] ED on 09/12 complaining of worsening dyspnea, nonproductive cough, lower extremity edema, and chills over the last day. He presented to outpatient cardiology and was sent to the ED due to hypoxia (pulse ox in low 80s on room air). Patient reports no changes in his CHF medications and has been compliant with therapy. Patient does report having what he believes to be an episode of atrial fibrillation within the last 2 days as well (reports having 1-2 episodes of atrial fibrillation per month at baseline). Patient's last ECHO was done on 08/11/2017 and showed known asymmetric septal LV hypertrophy, LVEF of 57%, and a RVSP of 47 mmHg (increased from 25 mmHg seen on 07/06/2017). In ED, patient was placed on 2L of O2 and given 60mg IV Lasix. CXR yesterday showed mild interstitial markings at lung bases without evidence of consolidation, effusion, or pneumothorax. Today patient was given 60mg PO of Lasix. He was weaned off oxygen mid-day, but then placed back on it because his sats continued to drop into the 80s with ambulation. CXR done this morning showed no changes, suggesting fluid overload without sunny heart failure. This afternoon, patient reports dyspnea has significantly improved from admission, but hasn't resolved completely. He has been able to walk the hallway with minimal symptoms. The nonproductive cough persists and has been unchanged since admission. Lower extremity edema has improved and he no longer has chills. His BNP is down to < 1,000 from > 3,000 yesterday. No complaints of fever, chest pain/pressure, orthopnea, or palpitations. Patient's blood pressure has mellissa stable since admission (110/70 currently). Plan: (1) Multaq should continue for pAF history (2) ACEi/BB therapy to continue as at present (3) Would maintain outpatient pacer/ICD interrogations (4) Coumadin for history of pAF to continue (5) Outpatient cardiology appointment with Dr. Mohinder Angela is scheduled for at 9:45 am Subjective: No cardiovascular complaints Reviewed/Discussed With: hospitalist Objective: Vital Signs (8 Hrs) Temp Pulse Resp BP Pulse Ox 09/15/17 11:25 36.4 C 100 12 105/75 93 09/15/17 07:13 36.7 C 75 20 106/66 91 L Intake/Output (24 Hrs) 09/14/17 09/15/17 09/16/17 05:59 05:59 05:59 Intake Total 780 1450 250 Output Total 1920 1850 1225 Balance -1140 -400 -975 Intake: Oral (ml) 780 1450 250 Output: Urine (ml) 1920 1850 1225 Urinal 1920 1850 1225 Other: Weight 84.1 kg 83.5 kg Result Diagrams: 09/13/17 03:41 09/15/17 04:18 - Physical Exam Constitutional: WDWN, healthy appearing, no apparent distress Eyes: PERRL, EOMI Ears, Nose, Mouth, Throat: moist mucous membranes Cardiovascular: regular rate and rhythm, pulses symmetric bilat, No jugular vein distention Peripheral Pulses: 2+: dorsalis-pedis (R), dorsalis-pedis (L) Respiratory: clear to auscultate bilat, no crackles Skin: no edema Musculoskeletal: no muscular tenderness Neurologic: AAOx3, CN II-XII grossly intact Psychiatric: cooperative, interactive, following commands ICD10 Worksheet Patient Problems: Problems Problem Status Onset Dyspnea Acute Hypoxemia Acute CHF exacerbation Acute Chronic Disease Mgmt/Transitional Care Acute Pulmonary hypertension Acute Shortness of breath Acute
--- NOTE | 2017-09-15 14:50 | PDDCSUM ---
Discharge Summary Discharge Summary: Dates of service 09/12-09/15/17 Consultations:cardiology Procedures performed: none Hospital course by problem: 67M admitted with dyspnea. Likely d/t CHF. Improving with diuresis. # acute hypoxic resp failure - improved s/p IV lasix, now 93% on RA - suspect d/t pulm edema as next # suspected dCHF exacerbation - improving - sp IV lasix and discharged home on oral lasix with plan to f/u with cardiology for ongoing management after dc -plan for pacer interrogation to be performed in f/u visit # bilat CXR infiltrates - suspect this is pulm edema, improved post lasix # pulm htn - was worse (47mmHg) in May than June - FLORECITA? will need sleep study # HCM, AICD # htn - cont lisino, metop # AI # paroxysmal a-fib - cont warfarin, metop, dronedarone # colitis - mesalamine dc home f/u with cardiology > 35 min spent in dc more than half in coordination of care
--- NOTE | 2017-09-15 14:58 | ASDISCHSUM ---
Discharge Information Plan Status:Home with No Needs Medically Cleared to Leave:09/15/2017 Discharge Date:09/15/2017 CM D/C Disposition:Home, Routine, Self-Care ADT D/C Disposition:Home, Routine, Self-Care Projected Discharge Date:09/15/2017 Transportation at D/C: Discharge Delay Reason: Follow-Up Date:09/15/2017 Discharge Slot: Final Diagnosis: Placement Information Patient Contact Information Contact Name:SILVIA Relationship: Address:[address] [address] Work Phone: City:[place] Alternate Phone: [facility]/Zip Code:[place] [address] Email: Financial Information Financial Class:Medicare Primary Plan Desc:MEDICARE INPATIENT Primary Plan Number:[id number] Secondary Plan Desc:[employer]/MDR SUPPLEMENT Secondary Plan Number:[id number] Assessment Information LACE LACE Length of stay for Answers: 1 day current admission Acuity / Level of Answers: Yes Care: Did the patient have an inpatient admission? Comorbidities - select Answers: Congestive heart failure all that apply Other Notes: AFib with pacemaker; ANGEL N # of Emergency department Answers: 1-2 visits in the last 6 months Score: 8 Date Signed: 09/15/2017 02:56 PM Electronically Signed By:Sharmila Webb RN [facility] Progress Note CM Note CM Note Notes: 09/13/2017 Case Management Note Discussed pt during rounds this morning. Pt admitted for hypoxia with a h/o afib, pacemaker placement and CHF. Pt was living independently with his prior to admission. There are no PT or OT evals ordered at this time. There are no identified case management d/c needs. Case Management d/c poc: anticipating independent with follow up as directed. Case Management available if needs change. Date Signed: 09/13/2017 12:35 PM Electronically Signed By:Sharmila Webb RN Case Management Discharge Plan Note Case Management Discharge Discharge Order Complete? Answers: Yes Patient to Obtain Answers: Independently Medications Discharge Comments Notes: 09/15/2017 Case Management Note Pt to d/c independent with follow up as directed. Date Signed: 09/15/2017 02:57 PM Electronically Signed By:Sharmila Webb RN Intervention Information Intervention Type:*Incorrect Registration Date of Service:09/12/2017 02:26 PM Patient Type:Inpatient Staff Member:SARINA Li, Deisy Hours: Discipline: Severity: Comment: Intervention Type:*BENNETT-Signed Date of Service:09/13/2017 10:55 AM Patient Type:Observation Staff Member:Laurie Iqbal Hours: Discipline: Severity: Comment: Intervention Type:*IM-Signed Date of Service:09/15/2017 01:20 PM Patient Type:Inpatient Staff Member:Laurie Iqbal Hours: Discipline: Severity: Comment:
[2017-09-15] MEDS ORDERED: FUROSEMIDE 40 MG TAB PO ONE (15:06)
== END 2017-09-15 15:59 | disposition home or self-care (01) | DRG 291 ==
LOC: INTOOBSV 12:02 → F2W 12:51 → OBSVTOIN 09-13 15:08
PROVIDERS: ADMIT Student in an Organized Health Care Education/Training Program; ATTEND Student in an Organized Health Care Education/Training Program
DX: I11.0 Hypertensive heart disease with heart failure (principal); I50.33 Acute on chronic diastolic (congestive) heart failure; J96.01 Acute respiratory failure with hypoxia; I48.0 Paroxysmal atrial fibrillation; K51.90 Ulcerative colitis, unspecified, without complications; R29.2 Abnormal reflex; I45.81 Long QT syndrome; I42.2 Other hypertrophic cardiomyopathy; Z79.01 Long term (current) use of anticoagulants; Z95.810 Presence of automatic (implantable) cardiac defibrillator
CPT/HCPCS: 96374; G0378; J0692; J1940

== ENCOUNTER → 2017-09-22 | Outpatient (CLI) | payer OTHER, MEDICARE | LOC: FIMAGING 11:38 | DX: R05 Cough (principal); I50.9 Heart failure, unspecified ==

== ENCOUNTER → 2018-01-18 | Outpatient (CLI) | payer OTHER, MEDICARE | LOC: BHFA 11:00 | PROVIDERS: ATTEND Internal Medicine Cardiovascular Disease | DX: I48.0 Paroxysmal atrial fibrillation (principal) ==

== ENCOUNTER → 2018-06-19 | Outpatient (CLI) | payer OTHER, MEDICARE | LOC: BHFA 11:30 | PROVIDERS: ATTEND Internal Medicine Cardiovascular Disease | DX: I42.9 Cardiomyopathy, unspecified (principal) ==

== ENCOUNTER 2018-07-18 15:13 | Emergency (ER) | payer OTHER, MEDICARE ==
--- NOTE | 2018-07-18 15:42 | EDPHY ---
H & P Stated Complaint: LUE weakness Time Seen by Provider: 07/18/18 15:26 HPI/ROS: CHIEF COMPLAINT: Mild left hand weakness HISTORY OF PRESENT ILLNESS: The patient presents the emergency department with complaints of mild left hand weakness that began 1.5 hr prior to arrival. The patient describes very subjective weakness and some discoordination and problems buttoning his shirt. The patient denies any sensory loss, headache or additional peripheral neurologic complaints. The patient has had fluent speech. He denies any history of fall or trauma. The patient is currently anticoagulated with Coumadin. His last INR was 2.7. The patient also has a pacemaker and defibrillator. REVIEW OF SYSTEMS: A comprehensive 10 point review of systems is otherwise negative aside from elements mentioned in the history of present illness. Source: Patient Exam Limitations: No limitations - Personal History Current Tetanus/Diphtheria Vaccine: Yes Current Tetanus Diphtheria and Acellular Pertussis (TDAP): Yes - Medical/Surgical History Hx Asthma: No Hx Chronic Respiratory Disease: No Hx Diabetes: No Hx Cardiac Disease: Yes Hx Renal Disease: No Hx Cirrhosis: No Hx Alcoholism: No Hx HIV/AIDS: No Hx Splenectomy or Spleen Trauma: No Other PMH: afib/pacemaker/defibrillator/cardiomyopathy, HTN, HLD, IBS, ulcerative colitis, GERD, gout - Social History Smoking Status: Never smoked - Physical Exam Exam: General Appearance: Alert, no distress Eyes: Pupils equal and round no pallor or injection ENT, Mouth: Mucous membranes moist Respiratory: There are no retractions, lungs are clear to auscultation Cardiovascular: Regular rate and rhythm Gastrointestinal: Abdomen is soft and nontender, no masses, bowel sounds normal Neurological: Alert and oriented x4, 5/5 strength noted all 4 extremities, no pronator drift, normal sensory exam, cranial nerves 2-12 intact, normal visual field present, normal finger to nose bilaterally with questionable asymmetry noted on the left Skin: Warm and dry, no rashes Musculoskeletal: Neck is supple nontender Extremities: symmetrical, full range of motion Psychiatric: Patient is oriented X 3, there is no agitation Constitutional: Initial Vital Signs Temperature (C) 36.6 C 07/18/18 15:17 Heart Rate 100 07/18/18 15:17 Respiratory Rate 16 07/18/18 15:17 Blood Pressure 113/79 07/18/18 15:17 O2 Sat (%) 96 07/18/18 15:17 O2 Delivery Mode Room Air Allergies/Adverse Reactions: indomethacin Allergy (Verified 07/18/18 15:16) fluid retention NSAIDS (Non-Steroidal Anti-Inflamma Allergy (Verified 07/18/18 15:16) Home Medications: Medication Instructions Recorded Atorvastatin Calcium [Lipitor 10 10 mg PO DAILY18 08/11/17 mg (*)] Dronedarone HCl [Multaq 400 mg (*)] 400 mg PO BIDMEAL 08/11/17 Mesalamine [Apriso 0.375 gm] 1.5 gm PO DAILY 08/11/17 Metoprolol Succinate Xr [Toprol Xl 50 mg PO DAILY 08/11/17 50 mg (*)] Pantoprazole Sodium [Protonix 40mg 40 mg PO DAILY18 08/11/17 (*)] Warfarin Sodium 1.5 mg PO DAILY #30 tablet 09/15/17 Allopurinol 07/18/18 Medical Decision Making - Diagnostics Imaging Results: Imaging Impressions Head CT 07/18/18 16:20 Impression: 1. No acute intracranial hemorrhage. With high clinical suspicion for acute ischemia, MRI brain is recommended for further evaluation Garrisonandreina Head was notified of these findings by telephone at 5:01 PM on 07/18/2018 Head CTA 07/18/18 16:20 Impression: 1. There is no hemodynamically significant ICA stenosis. 2. Patent vertebral arteries. CT ANGIOGRAPHY OF THE BRAIN: The major vessels of the [place] are well visualized, and there is no aneurysm, vascular malformation, flow-limiting stenosis, or acute occlusion identified. The distal cervical, petrous, cavernous , and supraclinoid portions of the internal carotid arteries are patent. The A1 and A2 segments are patent as are the M1, M2, and M3 trifurcation vessels. With regards to the posterior circulation, the distal vertebral arteries are patent. The vertebrobasilar confluence,, basilar artery, superior cerebellar arteries, and the posterior cerebral arteries are patent. origin of the left HOSPITAL COORDINATOR. Impression: 1. No evidence of aneurysm, flow-limiting stenosis, or acute occlusion. Garrison Head was notified of these findings by telephone at 5:01 PM on 07/18/2018 Neck CTA 07/18/18 16:20 Impression: 1. There is no hemodynamically significant ICA stenosis. 2. Patent vertebral arteries. CT ANGIOGRAPHY OF THE BRAIN: The major vessels of the [place] are well visualized, and there is no aneurysm, vascular malformation, flow-limiting stenosis, or acute occlusion identified. The distal cervical, petrous, cavernous , and supraclinoid portions of the internal carotid arteries are patent. The A1 and A2 segments are patent as are the M1, M2, and M3 trifurcation vessels. With regards to the posterior circulation, the distal vertebral arteries are patent. The vertebrobasilar confluence,, basilar artery, superior cerebellar arteries, and the posterior cerebral arteries are patent. origin of the left HOSPITAL COORDINATOR. Impression: 1. No evidence of aneurysm, flow-limiting stenosis, or acute occlusion. Garrison Head was notified of these findings by telephone at 5:01 PM on 07/18/2018 ED Course/Re-evaluation: Patient presents the ED with acute neurologic complaints best described as mild discoordination involving his left hand which began 1 hr prior to arrival. The patient has an NIH stroke scale of 0 on my evaluation. The patient is anticoagulated with an INR of 2. The patient also has a pacemaker and defibrillator. He was taken for a CT and CTA which demonstrate no evidence of intracranial hemorrhage, no obvious stroke and no evidence of vessel stenosis. The patient had serial examinations in the ED with improvement in his symptoms. The patient subjectively still feels slight discoordination involving the left hand only. I did curbside Dr. Denise from Neurology. We are unable to do an MRI secondary to the patient's pacemaker/defibrillator. The patient has had subjective improvement of his symptoms. He is currently anticoagulated. He has no flow limiting stenosis noted on his angiographic studies. The patient was offered admission to the hospital simply for observation knowing that there is not a strong therapeutic or diagnostic and point. He was also offered the ability to go home. He prefers to go home. He will be given customary aftercare instructions and return precautions. Differential Diagnosis: Differential diagnosis considered includes stroke, TIA, carotid dissection, thromboembolic event - Data Points Laboratory Results: Laboratory Results 07/18/18 15:50 07/18/18 15:50 07/18/18 07/18/18 07/18/18 16:12 15:50 15:50 WBC RBC Hgb Hct MCV MCH MCHC RDW Plt Count MPV Neut % (Auto) Lymph % (Auto) Crosby % (Auto) Eos % (Auto) Baso % (Auto) Nucleat RBC Rel Count Absolute Neuts (auto) Absolute Lymphs (auto) Absolute Monos (auto) Absolute Eos (auto) Absolute Basos (auto) Absolute Nucleated RBC Immature Gran % Immature Gran # PT 21.4 SEC H SEC (12.0-15.0) INR 1.96 H (0.83-1.16) APTT 39.9 SEC H SEC (23.0-38.0) Sodium 141 mEq/L mEq/L (135-145) Potassium 4.5 mEq/L mEq/L (3.5-5.2) Chloride 105 mEq/L mEq/L (97-110) Carbon Dioxide 23 mEq/l mEq/l (22-31) Anion Gap 13 mEq/L mEq/L (6-14) BUN 26 mg/dL H mg/dL (7-23) Creatinine 1.4 mg/dL H mg/dL (0.7-1.3) Estimated GFR 50 Glucose 109 mg/dL H mg/dL (70-100) Calcium 9.5 mg/dL mg/dL (8.5-10.4) POC Troponin I 0.01 ng/mL ng/mL (0.00-0.08) 07/18/18 15:50 WBC 8.79 10^3/uL 10^3/uL (3.80-9.50) RBC 4.52 10^6/uL 10^6/uL (4.40-6.38) Hgb 14.3 g/dL g/dL (13.7-17.5) Hct 42.8 % % (40.0-51.0) MCV 94.7 fL fL (81.5-99.8) MCH 31.6 pg pg (27.9-34.1) MCHC 33.4 g/dL g/dL (32.4-36.7) RDW 17.0 % H % (11.5-15.2) Plt Count 146 10^3/uL L 10^3/uL (150-400) MPV 10.8 fL fL (8.7-11.7) Neut % (Auto) 78.0 % H % (39.3-74.2) Lymph % (Auto) 13.1 % L % (15.0-45.0) Crosby % (Auto) 6.4 % % (4.5-13.0) Eos % (Auto) 1.7 % % (0.6-7.6) Baso % (Auto) 0.6 % % (0.3-1.7) Nucleat RBC Rel Count 0.0 % % (0.0-0.2) Absolute Neuts (auto) 6.86 10^3/uL H 10^3/uL (1.70-6.50) Absolute Lymphs (auto) 1.15 10^3/uL 10^3/uL (1.00-3.00) Absolute Monos (auto) 0.56 10^3/uL 10^3/uL (0.30-0.80) Absolute Eos (auto) 0.15 10^3/uL 10^3/uL (0.03-0.40) Absolute Basos (auto) 0.05 10^3/uL 10^3/uL (0.02-0.10) Absolute Nucleated RBC 0.00 10^3/uL 10^3/uL (0-0.01) Immature Gran % 0.2 % % (0.0-1.1) Immature Gran # 0.02 10^3/uL 10^3/uL (0.00-0.10) PT INR APTT Sodium Potassium Chloride Carbon Dioxide Anion Gap BUN Creatinine Estimated GFR Glucose Calcium POC Troponin I Point of Care Test Results: Chemistry 07/18/18 16:12 POC Troponin I 0.01 ng/mL ng/mL (0.00-0.08) Departure - Departure Disposition: Home, Routine, Self-Care Clinical Impression: Left hand weakness, Atrial fibrillation Condition: Good Instructions: A-fib (Atrial Fibrillation) (ED) Additional Instructions: 1. Please continue your Coumadin regular medications. 2. Return to the ED for severe headache, difficulty with speech, vision loss, worsening neurologic symptoms or other concerns. 3. You can follow up with our neurologist for any ongoing mild residual symptoms. You have been given the contact number for Dr. Keyon Denise. Referrals: Keyon Denise MD [Medical Doctor] - As per Instructions
[2018-07-18 15:57] LABS: PLATELET COUNT 146 10^3/uL (150-400)
[2018-07-18 16:06] LABS: INR 1.96 (0.83-1.16); PROTIME(PATIENT) 21.4 SEC (12.0-15.0)
[2018-07-18] MEDS ORDERED: IOPAMIDOL (ISOVUE 370) 100 ML BTL IV ONE (16:23)
[2018-07-18 18:01] VITALS: BP 106/72
== END 2018-07-18 18:42 | disposition home or self-care (01) ==
DX: R53.1 Weakness (principal); I48.91 Unspecified atrial fibrillation; Z79.01 Long term (current) use of anticoagulants
CPT/HCPCS: 70450; 70496; 70498; 99285; Q9967; 84484-ER

== ENCOUNTER 2018-07-30 08:29 | Inpatient (IN) | payer OTHER, MEDICARE ==
[2018-07-30 13:59] LABS: PLATELET COUNT 142 10^3/uL (150-400)
[2018-07-30 14:06] LABS: INR 1.97 (0.83-1.16); PROTIME(PATIENT) 21.5 SEC (12.0-15.0)
[2018-07-30] MEDS ORDERED: WARFARIN SODIUM 4 MG TAB PO SCH (21:00)
[2018-07-30] MEDS ORDERED: WARFARIN SODIUM 1 MG TAB PO SCH (21:00)
--- NOTE | 2018-07-30 21:07 | PDCARPN ---
Cardiology Progress Note Chief Complaint: Paroxysmal atrial fibrillation and atrial tachycardia Assessment/Plan: Assessment: 1. Paroxysmal atrial fibrillation: Symptomatic PAF and AT s/p multiple prior ablations in [place]. Device interrogation demonstrates frequent mode-switches related to AT vs. AF. [id number] score = 4, he is anticoagulated with Coumadin. History of bleeding on DOACs. 2. 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 Coronary artery disease 4. ICD 5. Renal insufficiency: Creatinine recently improved from 2.0 to 1.1 with decreased dose of diuretics per nephrology. CrCl 77 Plan: CrCl 77, baseline QTc <500ms 1. Load with Tikosyn 250mcg BID 2. ECG 2hrs post-administration 3. Continue to monitor BMP 07/30/18 21:03 Objective: Vital Signs (8 Hrs) Temp Pulse Resp BP Pulse Ox 07/30/18 19:38 36.8 C 96 12 100/80 90 L 07/30/18 15:39 36.6 C 87 16 112/84 H 92 Intake/Output (24 Hrs) 07/29/18 07/30/18 07/31/18 05:59 05:59 05:59 Intake Total 300 Balance 300 Intake: Oral (ml) 300 Other: Weight 88.025 kg Result Diagrams: 07/30/18 13:28 07/31/18 03:56 ICD10 Worksheet Patient Problems: Problems Problem Status Onset CHF exacerbation Acute Chronic Disease Mgmt/Transitional Care Acute Dyspnea Acute Hypoxemia Acute Pulmonary hypertension Acute Shortness of breath Acute
[2018-07-30] MEDS: PANTOPRAZOLE SODIUM 40 MG TAB PO SCH (21:30)
[2018-07-30] MEDS: ATORVASTATIN CALCIUM 10 MG TAB PO SCH (21:32)
[2018-07-30] MEDS: DOFETILIDE 0.25 MG CAP PO SCH (21:32)
[2018-07-30] MEDS: METOPROLOL TARTRATE 25 MG TAB PO SCH (21:33)
[2018-07-31 04:44] LABS: INR 1.95 (0.83-1.16); PROTIME(PATIENT) 21.3 SEC (12.0-15.0)
[2018-07-31] MEDS: ALLOPURINOL 300 MG TAB PO SCH (08:47)
[2018-07-31] MEDS: DOFETILIDE 0.25 MG CAP PO SCH (08:48)
[2018-07-31] MEDS: METOPROLOL TARTRATE 25 MG TAB PO SCH ×2 (08:48→20:51)
[2018-07-31] MEDS: SPIRONOLACTONE 25 MG TAB PO SCH (08:48)
[2018-07-31] MEDS: MESALAMINE PO SCH (08:49)
--- NOTE | 2018-07-31 09:07 | PDCARPN ---
Cardiology Progress Note Chief Complaint: Atrial fibrillation Assessment/Plan: Assessment: 1. Paroxysmal atrial fibrillation: Symptomatic PAF and AT s/p multiple prior ablations in [place]. Device interrogation demonstrates frequent mode-switches related to AT vs. AF. [id number] score = 4, he is anticoagulated with Coumadin. History of bleeding on DOACs. 2. 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 Coronary artery disease 4. ICD 5. Renal insufficiency: Creatinine recently improved from 2.0 to 1.1 with decreased dose of diuretics per nephrology. CrCl 77 Plan: CrCl 77, QTc <500ms 1. Continue Tikosyn 250mcg BID 2. ECG 2hrs post-administration 3. Continue to monitor BMP 4. Plan for cardioversion tomorrow morning, NPO after midnight 07/31/18 09:07 Objective: Vital Signs (8 Hrs) Temp Pulse Resp BP Pulse Ox 07/31/18 08:48 131 H 113/90 H 07/31/18 08:00 36.8 C 120 H 18 92/65 L 92 07/31/18 03:10 37 C 120 H 14 111/85 H 90 L Intake/Output (24 Hrs) 07/30/18 07/31/18 08/01/18 05:59 05:59 05:59 Intake Total 550 Balance 550 Intake: Oral (ml) 550 Other: Weight 88.025 kg Number of Voids Toilet 1 Result Diagrams: 07/30/18 13:28 07/31/18 03:56 Telemetry: Atrial fibrillation - Physical Exam Constitutional: WDWN, healthy appearing, no apparent distress Cardiovascular: irregularly irregular Respiratory: clear to auscultate bilat, no crackles, no wheezes Neurologic: AAOx3, CN II-XII grossly intact Psychiatric: cooperative, interactive, following commands, not anxious ICD10 Worksheet Patient Problems: Problems Problem Status Onset CHF exacerbation Acute Chronic Disease Mgmt/Transitional Care Acute Dyspnea Acute Hypoxemia Acute Pulmonary hypertension Acute Shortness of breath Acute
--- NOTE | 2018-07-31 13:11 | CPEKG ---
Test Reason : OPEN Blood Pressure : / mmHG Vent. Rate : 084 BPM Atrial Rate : 077 BPM P-R Int : 144 ms QRS Dur : 102 ms QT Int : 433 ms P-R-T Axes : 000 005 098 degrees QTc Int : 512 ms Ventricular-paced complexes Confirmed by Arnulfo Rainey ([id number]) on 07/31/2018 1:11:17 PM Referred By: Arnulfo Rainey Confirmed By:Arnulfo Rainey
--- NOTE | 2018-07-31 13:17 | CPEKG ---
Test Reason : OPEN Blood Pressure : / mmHG Vent. Rate : 087 BPM Atrial Rate : 084 BPM P-R Int : 265 ms QRS Dur : 102 ms QT Int : 424 ms P-R-T Axes : -63 -01 099 degrees QTc Int : 510 ms Slow atrial tachycardia vs atrial flutter (see lead V1) Ventricular-paced complexes Nonspecific T abnormalities, lateral leads Prolonged QT interval Confirmed by Arnulfo Rainey ([id number]) on 07/31/2018 1:16:55 PM Referred By: Arnulfo Rainey Confirmed By:Arnulfo Rainey
--- NOTE | 2018-07-31 15:17 | PDMN ---
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
--- NOTE | 2018-07-31 15:28 | ASMTCMCOM ---
CM Note CM Note Notes: Pt is a 68 y/o man admitted for afib. CM met w/ pt and introduced self. Pt reports that he is going [facility] and the doctors are adjusting his meds. Pt reports that he is able to get around independently and attend to his ADLs without trouble. Pt reports that he is able to ambulate without any trouble. Anticipate pt will d/c without any needs. No therapies ordered at this time. CM available for changes. Plan: Independent w/ supportive Date Signed: 07/31/2018 03:27 PM Electronically Signed By:ROLAND Klein
[2018-07-31] MEDS ORDERED: MAGNESIUM SULF 1 GM/DEXTROSE 100 ML IV ONE (17:30)
[2018-07-31] MEDS: DOFETILIDE 0.125 MG CAP PO SCH (20:51)
[2018-07-31] MEDS: PANTOPRAZOLE SODIUM 40 MG TAB PO SCH (20:51)
[2018-07-31] MEDS: ATORVASTATIN CALCIUM 10 MG TAB PO SCH (20:51)
[2018-07-31] MEDS ORDERED: WARFARIN SODIUM 1 MG TAB PO SCH (21:00)
[2018-08-01] MEDS ORDERED: DOFETILIDE 0.125 MG CAP PO SCH
[2018-08-01] MEDS ORDERED: ATROPINE SULFATE 1 MG/10 ML SYR IVP ONE (06:00)
--- NOTE | 2018-08-01 06:43 | POSTANESTH ---
Post Anesthetic Evaluation Cardiovascular Status: Similar to Pre-Op Cond Respiratory Status: Normal, Stable Level of Consciousness/Mental Status: Can Participate in Eval, Alert and Oriented Pain Control: Adequate, Prn Tx Ordered Nausea/Vomiting Control: Adequate, Prn Tx Ordered Complications Possibly Related to Anesthesia: None Noted (No meds administered during this MAC)
--- NOTE | 2018-08-01 06:48 | PDANEPAE ---
ANE History of Present Illness 68 yo male with paroxysmal A Fib for CV. ANE Past Medical History - Cardiovascular History Hx Arrhythmias: Yes Hx Coronary Artery / Peripheral Vascular Disease: Yes Hx CHF / Valvular Disease: Yes Cardiovascular History Comment: hypertrophic cardiomyopathy without obstruction , s/p AICD placement. hypercholesterolemia - Pulmonary History Hx Oxygen in Use at Home: No Hx Sleep Apnea: Yes Pulmonary History Comment: severe sleep apnea, mixed central and obstructive, prescribed ASV but pt never got the machine. Says he did not like the mask. - Endocrine History Hx Diabetes: No Hypothyroid: No Hyperthyroid: No Obesity: no - Renal History Hx Renal Disorders: Yes Renal History Comment: CKD, Cr improved from 2 to 1.1 with reduction in diuretic - GI History GERD: mild Hx Gastrointestinal Disorders: Yes Gastrointestinal History Comment: on Protonix, pt states he has ulcerative colitis and Crohn's dz - Chronic Pain History Chronic Pain: No - Surgical History Prior Surgeries: partial nephrectomy ANE Review of Systems Review of Systems: - Systems Constitutional: Reports: no symptoms Cardiac: Reports: irregular heart rate, palpitations Respiratory: Reports: no symptoms Gastrointestinal: Reports: no symptoms - Pacemaker Pacemaker Blood Collector: Medtronic Pacemaker Model: [id number] Pacemaker Mode: DDD Date Pacemaker Last Checked: June 2017 ANE Patient History - Allergies Allergies/Adverse Reactions: indomethacin Allergy (Verified 07/18/18 15:16) fluid retention NSAIDS (Non-Steroidal Anti-Inflamma Allergy (Verified 07/18/18 15:16) - Home Medications Home Medications: Atorvastatin Calcium [Lipitor 10 mg (*)] 10 mg PO HS 08/11/17 [Last Taken ] Mesalamine [Apriso 0.375 gm] 1.5 gm PO DAILY 08/11/17 [Last Taken 07/30/18] Pantoprazole Sodium [Protonix 40mg (*)] 40 mg PO HS 08/11/17 [Last Taken ] Allopurinol [Allopurinol 300 MG (RX)] 450 mg PO DAILY 07/18/18 [Last Taken 07/30] Cholecalciferol Vit D3 [Vitamin D3 (*)] 50,000 units PO THOMAS 07/30/18 [Last Taken 07/29/18] Metoprolol Tartrate [Lopressor 25 mg (*)] 12.5 mg PO BID 07/30/18 [Last Taken ] Spironolactone [Aldactone 25 MG (*)] 12.5 mg PO DAILY 07/30/18 [Last Taken 07/30] Warfarin Sodium 1 mg PO TUTHSA@07/31/18 [Last Taken 07/28/18] Warfarin Sodium [Coumadin 1MG (*)] 1.5 mg PO SUMOWEFR@07/31/18 [Last Taken ] - NPO status NPO Status: no food or drink >8 hours - Anes Hx Anes Hx: no prior problems - Smoking Hx Smoking Status: Never smoked - Family Anes Hx Family Anes Hx: neg - N/A ANE Labs/Vital Signs - Labs Result Diagrams: 07/30/18 13:28 07/31/18 03:56 - Vital Signs Blood Pressure: 107/81 Heart Rate: 119 Respiratory Rate: 13 O2 Sat (%): 92 Height: 180.34 cm Weight: 88.025 kg ANE Physical Exam - Airway Neck exam: FROM Mallampati Score: Class 3 Mouth exam: normal dental/mouth exam - Pulmonary Pulmonary: clear to auscultation - Cardiovascular Cardiovascular: irregularly irregular - ASA Status ASA Status: III ANE Anesthesia Plan Anesthesia Plan: GA with mask Total IV Anesthesia: Yes
[2018-08-01] MEDS ORDERED: PROPOFOL 200 MG/20 ML VIAL ONE (08:29)
[2018-08-01] MEDS ORDERED: LIDOCAINE 1% 5 ML SDV ONE (08:29)
--- NOTE | 2018-08-01 08:29 | PDGENHP ---
History & Physical Chief Complaint: Atrial fibrillation/Atrial flutter Pertinent Past, Social, Family History: HCM, ICD, CRI, symptomatic Afib/ Aflutter. INR has been borderline subtherapeutic several times in the past few weeks Relevant Physical Exam: A&Ox4, no apparent distress, irregularly irregular rhythm, normal rate, +BLE edema Cardiorespiratory Assessment: Proceed with BOBBY-guided DCCV as planned for today
[2018-08-01] MEDS: DOFETILIDE 0.125 MG CAP PO SCH (09:12)
[2018-08-01] MEDS: MESALAMINE PO SCH (09:23)
[2018-08-01] MEDS: ALLOPURINOL 300 MG TAB PO SCH (09:24)
[2018-08-01] MEDS: SPIRONOLACTONE 25 MG TAB PO SCH (09:25)
[2018-08-01] MEDS: METOPROLOL TARTRATE 25 MG TAB PO SCH (09:26)
[2018-08-01 15:49] VITALS: BP 126/74
[2018-08-01] MEDS ORDERED: DOFETILIDE 0.125 MG CAP PO ONE (16:00)
[2018-08-02] MEDS ORDERED: DOFETILIDE 0.125 MG CAP PO SCH (09:00)
[2018-08-05] MEDS ORDERED: CHOLECALCIFEROL VIT D3 50,000 UNIT CAP PO SCH (09:00)
--- NOTE | 2018-08-06 13:29 | CPEKG ---
Test Reason : OPEN Blood Pressure : / mmHG Vent. Rate : 115 BPM Atrial Rate : 119 BPM P-R Int : 307 ms QRS Dur : 097 ms QT Int : 384 ms P-R-T Axes : 000 -07 112 degrees QTc Int : 531 ms Atrial tachycardia vs AFL Confirmed by Arnulfo Rainey ([id number]) on 08/06/2018 1:28:52 PM Referred By: Arnulfo Rainey Confirmed By:Arnulfo Rainey
--- NOTE | 2018-08-06 13:43 | GDS ---
[f rep st] DISCHARGE SUMMARY SUPERVISING BOOT TRIMMER: Arnulfo Rainey MD. ADMISSION DIAGNOSES: 1. Paroxysmal atrial fibrillation/atrial tachycardia, status post multiple prior ablations in [place]. 2. Hypertrophic cardiomyopathy with ICD. 3. Coronary artery disease. 4. Renal insufficiency. DISCHARGE DIAGNOSES: Paroxysmal atrial fibrillation/atrial tachycardia status post Tikosyn loading. HOSPITAL COURSE: The patient presented 07/30/2018, for Tikosyn loading in the setting of frequent symptomatic episodes of paroxysmal atrial fibrillation and atrial tachycardia with failure to medical therapy with Multaq and multiple attempted prior ablations in [place]. Baseline ECG demonstrated an acceptable JT interval and his creatinine clearance was noted to be 77 mL/minute. He was started on Tikosyn 250 mcg b.i.d. His QTc/JT subsequently lengthened to greater than 500msec/400ms respectively, and his dose was decreased to 125 mcg twice daily. He remained in atrial tachycardia throughout his admission despite attempted cardioversion on the morning of 08/01/2018. He was not able to be converted to normal sinus rhythm and we had a complex discussion regarding options for management of his atrial tachycardia, including medical management with amiodarone versus attempted repeat catheter-based ablation versus surgical ablation. Mr. Mao will consider these options and he will follow up early next week. In the meantime, he will continue Tikosyn 125 mcg twice daily. PHYSICAL EXAMINATION: GENERAL: Alert and oriented x4, in no apparent distress. VITAL SIGNS: Blood pressure 126/74, heart rate 121, respiratory rate 20, SpO2 93% on room air, temp 36.6 degrees Celsius. RESPIRATORY: Lungs are clear to auscultation without adventitious breath sounds. CARDIAC: Irregularly irregular rate and rhythm, S1, S2. ABDOMEN: Normoactive bowel sounds times all 4 quadrants. No masses or tenderness. Soft to palpation. SKIN: [place], warm and dry without cyanosis or clubbing. EXTREMITIES: Pulses 2 + bilaterally. No edema. Normal exam. Normal range of motion. LABORATORY STUDIES: Normal BMP with a magnesium of 2.0. PROCEDURES: Attempted cardioversion as described above. Electrocardiogram as described above. DISCHARGE DISPOSITION: The patient will be discharged home in stable condition. He is not under any activity restrictions. DISCHARGE MEDICATIONS: Please see discharge medication reconciliation sheet. The patient has been started on Tikosyn 125 mcg twice daily discharge. DISCHARGE INSTRUCTIONS: Tikosyn patient education and instructions were reviewed with patient and his in detail, including the need to seek prompt medical attention should he experience any protracted vomiting, diarrhea, or impaired p.o. intake. We also reviewed the need for routine monitoring, regular ECGs and routine laboratory studies for Tikosyn monitoring recreational therapy aide. The patient will follow up with me in 1 week to discuss options for managing his atrial arrhythmia. He is tentatively scheduled for atrial tachycardia ablation with Dr. Shruti Almaguer, 08/09/2018. He may also consider starting amiodarone for medical management as an appropriate alternative to repeat ablation and/or he may consider surgical ablation in the future. At the time of discharge, the patient verbalized understanding regarding all discharge instructions without questions or concerns. He will follow up with me in 1 week and he will contact [facility] with any new or concerning symptoms prior to his upcoming visit. Time spent on discharge, greater than 30 minutes. /[id number]/MODL MTDD
--- NOTE | 2018-08-06 13:50 | CPEKG ---
Test Reason : OPEN Blood Pressure : / mmHG Vent. Rate : 108 BPM Atrial Rate : 118 BPM P-R Int : 219 ms QRS Dur : 098 ms QT Int : 390 ms P-R-T Axes : -34 097 119 degrees QTc Int : 523 ms Atrial tachycardia Right axis deviation Confirmed by Arnulfo Rainey ([id number]) on 08/06/2018 1:49:59 PM Referred By: Arnulfo Rainey Confirmed By:Arnulfo Rainey
--- NOTE | 2018-08-06 15:28 | CPEKG ---
Test Reason : OPEN Blood Pressure : / mmHG Vent. Rate : 122 BPM Atrial Rate : 111 BPM P-R Int : 224 ms QRS Dur : 099 ms QT Int : 375 ms P-R-T Axes : 014 095 127 degrees QTc Int : 535 ms atrial tachycardia prolonged IA interval Right axis deviation Nonspecific repol abnormality, lateral leads Confirmed by Arnulfo Rainey ([id number]) on 08/06/2018 3:27:54 PM Referred By: Arnulfo Rainey Confirmed By:Arnulfo Rainey
== END 2018-08-01 18:41 | disposition home or self-care (01) | DRG 310 ==
LOC: F2W 11:36 → OBSVTOIN 12:12
PROVIDERS: ADMIT Internal Medicine Cardiovascular Disease; ATTEND Internal Medicine Cardiovascular Disease
DX: I48.0 Paroxysmal atrial fibrillation (principal); Z53.09 Procedure and treatment not carried out because of other contraindication; I48.92 Unspecified atrial flutter; I25.10 Atherosclerotic heart disease of native coronary artery without angina pectoris; I45.81 Long QT syndrome; N18.9 Chronic kidney disease, unspecified; E78.00 Pure hypercholesterolemia, unspecified; G47.33 Obstructive sleep apnea (adult) (pediatric); G47.37 Central sleep apnea in conditions classified elsewhere; Z79.01 Long term (current) use of anticoagulants; Z95.810 Presence of automatic (implantable) cardiac defibrillator
CPT/HCPCS: J2704; J3475

== ENCOUNTER 2018-08-15 11:23 | Observation (INO) | payer OTHER, MEDICARE ==
--- NOTE | 2018-08-15 12:24 | PDGENHP ---
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 He was started on amiodarone about a week ago and his Lasix was held due to worsening renal function. He was seen today for follow-up after his amiodarone load and was noted to be hypoxic on room air with sats around 87% along with worsening lower extremity edema. The patient denied any orthopnea or chest pain. He did not feel comfortable going home and so was referred to [facility] for evaluation and management. He does not that he has worsening lower extremity edema and dyspnea with exertion he is fine at rest and with oxygen. He has denied any new cough, fevers, chills or chest pain. History Information - Allergies/Home Medication List Allergies/Adverse Reactions: indomethacin Allergy (Verified 08/15/18 13:01) Other-Enter Comments NSAIDS (Non-Steroidal Anti-Inflamma Allergy (Verified 08/15/18 13:01) Other-Enter Comments Home Medications: Atorvastatin Calcium [Lipitor 10 mg (*)] 10 mg PO DAILY18 08/11/17 [Last Taken 08/14/18] Mesalamine [Apriso 0.375 gm] 1.5 gm PO DAILY 08/11/17 [Last Taken 08/15/18] Pantoprazole Sodium [Protonix 40mg (*)] 40 mg PO DAILY18 08/11/17 [Last Taken ] Allopurinol [Allopurinol 300 MG (RX)] 450 mg PO DAILY 07/18/18 [Last Taken 08/15] Cholecalciferol Vit D3 [Vitamin D3 (*)] 50,000 units PO THOMAS 07/30/18 [Last Taken 08/12/18] Metoprolol Tartrate [Lopressor 25 mg (*)] 12.5 mg PO BID 07/30/18 [Last Taken ] Spironolactone [Aldactone 25 MG (*)] 12.5 mg PO DAILY 07/30/18 [Last Taken 08/15] Warfarin Sodium 1 mg PO TUTHSA@21 07/31/18 [Last Taken 08/14/18] Warfarin Sodium [Coumadin 1MG (*)] 1.5 mg PO SUMOWEFR@21 07/31/18 [Last Taken ] Amiodarone HCl [Pacerone (*)] 200 mg PO DAILY 08/15/18 [Last Taken 08/15/18 400mg] I have personally reviewed and updated: family history, medical history, social history, surgical history - Past Medical History Additional medical history: afib/atach, uc, crohns, HLD, gout, hypertrophic cardiomyopathy, HTN, AICD, ckd - Surgical History Additional surgical history: AICD placed, partial nephrectomy. - Family History Positive for: non-pertinent - Social History Smoking Status: Never smoked Review of Systems Review of Systems: ROS: 10pt was reviewed & negative except for what was stated in HPI & below Physical Exam Physical Exam: Temp Pulse Resp BP Pulse Ox 36.9 C 73 129/80 H 93 08/15/18 12:00 08/15/18 12:00 08/15/18 12:00 08/15/18 12:00 O2 (L/minute) 3 Assessment & Plan Assessment: 68-year-old male with past medical history of AFib, hypertrophic cardiomyopathy , hypertension, hyperlipidemia recently started on amiodarone here with CHF exacerbation Acute hypoxemic respiratory failure- likely due to fluid overload in the setting of holding his Lasix. He has 2+ pitting edema in the lower extremities along with hypoxia on room air to around mid 80s. No crackles on examination however. CXR with mild interstitial edema and cardiomegaly. -strict I/O -daily weight -cardiac diet -2 L f fluid restriction -trial Lasix 20 IV now CHF exacerbation- I reviewed the patient's chart and he had an echo in May of 2018 with an LVEF of around 49%. Suggest this exacerbation is secondary to holding his diuretic. CXR today and on my review mild CHF with cardiomegaly. - lasix 20mg X1 today. redose based on response in am. -resume Lasix -cardiology consulted AFib- recently stopped Tikosyn and multaq and started on amiodarone. Also on Coumadin. -continue amiodarone -continue Coumadin with goal INR 2-3 CKD- creatinine 1.3 today which is actually better than it has been. Will need to monitor closely given his response to Lasix in the past. -monitor renal function UC- cont mesalamine Hypertension- continue home Lopressor and Aldactone Hyperlipidemia- continue Lipitor Hypertrophic cardiomyopathy- follows with Cardiology. Seen today by Dr. Rainey. Cardiology consulted, will continue home cardiac medications. Prophylaxis-Coumadin SCDs Fluids-none Electrolytes within normal limits Nutrition cardiac diet Cor full Dispo-observation for acute hypoxemic respiratory failure and CHF exacerbation chart and old records reviewed, patient is new to me.
[2018-08-15] MEDS ORDERED: ONDANSETRON 4 MG/2 ML VIAL IVP PRN (12:30)
[2018-08-15] MEDS ORDERED: ONDANSETRON DISINTEGRATING 4 MG TAB PO PRN (12:30)
[2018-08-15] MEDS ORDERED: ACETAMINOPHEN 325 MG TAB PO PRN (12:30)
[2018-08-15] MEDS ORDERED: FUROSEMIDE 20 MG/2 ML VIAL IVP ONE (12:34)
[2018-08-15 15:25] LABS: INR 2.13 (0.83-1.16); PROTIME(PATIENT) 22.8 SEC (12.0-15.0)
[2018-08-15] MEDS ORDERED: WARFARIN SODIUM 1 MG TAB PO SCH (16:00)
[2018-08-15] MEDS: ATORVASTATIN CALCIUM 10 MG TAB PO SCH (17:02)
[2018-08-15] MEDS: PANTOPRAZOLE SODIUM 40 MG TAB PO SCH (17:03)
[2018-08-15] MEDS: METOPROLOL TARTRATE 25 MG TAB PO SCH (20:47)
[2018-08-16 04:48] LABS: PLATELET COUNT 122 10^3/uL (150-400)
[2018-08-16 04:53] LABS: INR 2.29 (0.83-1.16); PROTIME(PATIENT) 24.1 SEC (12.0-15.0)
[2018-08-16] MEDS: METOPROLOL TARTRATE 25 MG TAB PO SCH ×2 (09:30→20:19)
[2018-08-16] MEDS: SPIRONOLACTONE 25 MG TAB PO SCH (09:31)
[2018-08-16] MEDS: AMIODARONE HCL 200 MG TAB PO SCH (09:31)
[2018-08-16] MEDS: ALLOPURINOL 300 MG TAB PO SCH (09:32)
[2018-08-16] MEDS: MESALAMINE 1.5 GM PO SCH (09:32)
[2018-08-16] MEDS ORDERED: FUROSEMIDE 20 MG/2 ML VIAL IVP ONE (09:52)
--- NOTE | 2018-08-16 12:56 | HOSPPROG ---
Hospitalist Progress Note Assessment/Plan: 68-year-old male with past medical history of AFib, hypertrophic cardiomyopathy , hypertension, hyperlipidemia recently started on amiodarone here with CHF exacerbation Acute hypoxemic respiratory failure- likely due to fluid overload in the setting of holding his Lasix. He has 2+ pitting edema in the lower extremities along with hypoxia on room air to around mid 80s. No crackles on examination however. CXR with mild interstitial edema and cardiomegaly. -strict I/O -daily weight -cardiac diet -2 L f fluid restriction -redose IV lasix at 20mg today. CHF exacerbation- I reviewed the patient's chart and he had an echo in May of 2018 with an LVEF of around 49%. Suggest this exacerbation is secondary to holding his diuretic. CXR today and on my review mild CHF with cardiomegaly. -resume Lasix at discharge (PO) -cardiology consulted AFib- recently stopped Tikosyn and multaq and started on amiodarone. Also on Coumadin. -continue amiodarone 200mg daily -continue Coumadin with goal INR 2-3 CKD- creatinine 1.3 today which is actually better than it has been. Will need to monitor closely given his response to Lasix in the past. -monitor renal function UC- cont mesalamine Hypertension- continue home Lopressor and Aldactone Hyperlipidemia- continue Lipitor Hypertrophic cardiomyopathy- follows with Cardiology. Seen today by Dr. Rainey. Cardiology consulted, will continue home cardiac medications. Prophylaxis-Coumadin SCDs Fluids-none Electrolytes within normal limits Nutrition cardiac diet Cor full Dispo-change to inpatient for acute hypoxemic respiratory failure, and CHF exacerbation. Subjective: better, still some edema, wright. Objective: Vital Signs Temp Pulse Resp BP Pulse Ox 36.7 C 75 16 113/69 97 08/16/18 11:44 08/16/18 11:44 08/16/18 12:14 08/16/18 11:44 08/16/18 11:44 Laboratory Results 08/16/18 03:44 08/16/18 03:44 08/15/18 08/16/18 08/17/18 05:59 05:59 05:59 Intake Total 900 Output Total 1700 Balance -800 PT 24.1 SEC (12.0-15.0) H 08/16/18 03:44 INR 2.29 (0.83-1.16) H 08/16/18 03:44 - Physical Exam Constitutional: no apparent distress, appears nourished, not in pain Eyes: PERRL, anicteric sclera, EOMI Ears, Nose, Mouth, Throat: moist mucous membranes, hearing normal, ears appear normal, no oral mucosal ulcers Cardiovascular: regular rate and rhythym, no murmur, rub, or gallop, edema Respiratory: no respiratory distress, no rales or rhonchi, clear to auscultation Gastrointestinal: normoactive bowel sounds, soft, non-tender abdomen, no palpable masses Genitourinary: no bladder fullness, no bladder tenderness, no renal bruits Skin: no rashes or abrasions, no fluctuance, no induration Musculoskeletal: full muscle strength, no muscle tenderness, normal joint ROM Neurologic: AAOx3, sensation intact bilaterally Psychiatric: interacting appropriately, not anxious, not encephalopathic, thought process linear Lymph, Heme, Immunologic: no cervical LAD, no supraclavicular LAD ICD10 Worksheet Patient Problems: Problems Problem Status Onset Atrial tachycardia Acute CHF exacerbation Acute Chronic Disease [facility]/Transitional Care Acute Dyspnea Acute Hypoxemia Acute Pulmonary hypertension Acute Shortness of breath Acute
--- NOTE | 2018-08-16 13:33 | GHP ---
[f rep st] HISTORY AND PHYSICAL DATE OF ADMISSION: 08/15/2018 CHIEF COMPLAINT: We have been asked by Dr. Glover to evaluate the patient with congestive he art failure. HISTORY OF PRESENT ILLNESS: The patient is a 68-year-old gentleman with a history of hypertrophic ob structive cardiomyopathy and paroxysmal atrial fibrillation, who was admitted on 08/15/2018, with con gestive heart failure. The patient was in his usual state of health until approximately 1 to 2 month s prior to admission when he was found to have increasing episodes of atrial fibrillation. He was tr ansitioned from Multaq to Tikosyn and ultimately to amiodarone. Around this time, patient was noted to have renal insufficiency and his diuretic dose was discontinued. The patient has gradually noted a 15-pound weight gain, followed by abdominal distention, lower extremity edema and progressive dyspn ea on exertion. On the day of admission, the patient was evaluated by the EP service and was found t o be hypoxemic and was referred to the emergency department for further evaluation. The patient was noted to be in normal sinus rhythm. His BNP was elevated at 1020. His creatinine was within normal limits at 1.3. The patient was given a single dose of diuretic therapy with improvement in his sympt oms. We have been consulted to help in the further management of this patient. The patient denies s ymptoms of chest pain, as well as orthopnea and PND. He does report progressive dyspnea on exertion, as well as abdominal distention and lower extremity edema. The patient has been taking all his medi cations with the exception of Lasix, which was held secondary to renal insufficiency. The patient di d recently start amiodarone, but is on a low dose at 200 mg daily. PAST MEDICAL HISTORY: 1. Hypertrophic cardiomyopathy, status post ICD. 2. Hypertension. 3. Mild aortic insufficiency by echocardiogram in 06/2018. 4. Paroxysmal atrial fibrillation, status post ablation x2. Currently maintaining normal sinus rhyt hm on amiodarone therapy. MEDICATIONS: Please see medicine reconciliation form. SOCIAL HISTORY: The patient lives with his . He does not smoke. He denies problems with alcoho l. FAMILY HISTORY: Noncontributory. REVIEW OF SYSTEMS: A 10-point review of systems is negative except as noted in the HPI. PHYSICAL EXAMINATION: GENERAL: The patient is resting comfortably in a chair. He does not appear t o be in acute distress. VITALS: Temperature is afebrile, pulse is 75, blood pressure 113/69, respir atory rate is 16, SaO2 is 97% on 2 L nasal cannula. HEENT: Normocephalic, atraumatic. Extraocular muscles are intact. NECK: Positive JVD. No bruits. LUNGS: Clear to auscultation bilaterally. CA RDIOVASCULAR: Regular rate and rhythm. S1, S2. Grade 2/6 diastolic murmur is noted at the left joao rnal border. ABDOMEN: Soft, nontender. Normoactive bowel sounds. EXTREMITIES: 2+ lower extremity edema. SKIN: No evidence of rashes. NEURO: The patient is awake, alert and oriented x3. LABORATORY: White blood cell count is 8.02, hemoglobin 12.6, hematocrit is 39.1, platelet count is 1 22. INR is 2.29. Sodium 138, potassium 4.5, chloride 103, CO2 is 25, BUN 24, creatinine 1.3. BNP i s elevated at 1020. EKG demonstrates sinus rhythm with first-degree AV block and poor R-wave progres ranjana. ASSESSMENT AND PLAN: The patient is a 68-year-old gentleman with return: 1. Hypertrophic obstructive cardiomyopathy. The patient has a history of a hypertrophic obstructive cardiomyopathy. He is status post ICD placement for primary prevention. Will continue routine ICD checks. 2. Hypertension. The patient has a history of hypertension. His blood pressure has been well contr olled since admit. 3. Nonrheumatic aortic insufficiency. The patient has a history of mild aortic insufficiency by ech ocardiogram in 06/2018. I do not think he requires a repeat echocardiogram at this time. 4. Paroxysmal atrial fibrillation. The patient has a history of paroxysmal atrial fibrillation. He is status post ablation on 2 separate occasions. He has failed multiple antiarrhythmic medications. He is currently maintaining a normal sinus rhythm on amiodarone therapy. Will plan on continuing c urrent therapy with amiodarone and Coumadin. 5. Congestive heart failure. The patient presents with a several-week history of progressive dyspne a on exertion, followed by abdominal extension and lower extremity edema. His weight is up approxima tely 15 pounds from baseline. This change is associated with the recent discontinuation of Lasix sec ondary to renal insufficiency. He reports a significant improvement in his symptoms since starting L asix therapy, but is still requiring oxygen therapy. His creatinine appears to be holding stable at this time. Will give additional diuretic therapy and monitor renal function closely. The patient's symptoms could be related to amiodarone initiation. However, I think this is much less likely than c ongestive heart failure related to discontinuation of diuretic therapy. Will continue to follow. /[id number]/MODL
[2018-08-16] MEDS ORDERED: WARFARIN SODIUM 1 MG TAB PO SCH (16:00)
[2018-08-16] MEDS: ATORVASTATIN CALCIUM 10 MG TAB PO SCH (17:57)
[2018-08-16] MEDS: PANTOPRAZOLE SODIUM 40 MG TAB PO SCH (17:57)
[2018-08-17 04:51] LABS: INR 2.24 (0.83-1.16); PROTIME(PATIENT) 23.7 SEC (12.0-15.0)
[2018-08-17 08:10] VITALS: BP 92/67
[2018-08-17] MEDS ORDERED: FUROSEMIDE 20 MG TAB PO SCH ×2 (09:00→09:43)
[2018-08-17] MEDS: ALLOPURINOL 300 MG TAB PO SCH (09:19)
[2018-08-17] MEDS: METOPROLOL TARTRATE 25 MG TAB PO SCH (09:20)
[2018-08-17] MEDS: AMIODARONE HCL 200 MG TAB PO SCH (09:21)
[2018-08-17] MEDS: SPIRONOLACTONE 25 MG TAB PO SCH (09:21)
[2018-08-17] MEDS: MESALAMINE 1.5 GM PO SCH (09:22)
--- NOTE | 2018-08-17 10:08 | ASMTDCNOTE ---
Case Management Discharge Discharge Order Complete? Answers: Yes Patient to Obtain Answers: via Family Medications Transportation Arranged Answers: Family/Friends Discharge Comments Notes: Pt is a 68 YO M presents with SOB and Hypoxia. Is getting discharged today. PT/OT cleared pt for home. Pt is independent and has no issues obtaining meds or getting to follow-up appts. No other CM needs identified. Discharge independent. Date Signed: 08/17/2018 10:07 AM Electronically Signed By:ROLAND Tamayo
--- NOTE | 2018-08-17 10:09 | ASMTLACE ---
LACE Length of stay for Answers: 1 day current admission Acuity / Level of Answers: No Care: Did the patient have an inpatient admission? Comorbidities - select Answers: Congestive heart failure all that apply Other Notes: AFib; HTN; HLD # of Emergency department Answers: 1-2 visits in the last 6 months Score: 5 Date Signed: 08/17/2018 10:08 AM Electronically Signed By:ROLAND Tamayo
--- NOTE | 2018-08-17 11:59 | CPEKG ---
Test Reason : OPEN Blood Pressure : / mmHG Vent. Rate : 075 BPM Atrial Rate : 000 BPM P-R Int : 201 ms QRS Dur : 109 ms QT Int : 489 ms P-R-T Axes : 000 -11 098 degrees QTc Int : 547 ms Atrial-paced rhythm Prolonged TX interval Prolonged QT interval Confirmed by Evan Bedolla ([id number]) on 08/17/2018 11:59:04 AM Referred By: Jignesh Glover Confirmed By:Evan Bedolla
--- NOTE | 2018-08-17 16:32 | PDDCSUM ---
Discharge Summary Discharge Summary: discharge diagnosis acute exacerbation of CHF acute hypoxemic respiratory failure HTN lower extremity edema afib patient was admitted after being sent from cardiology clinic where he was noted to be hypoxemic with worsening lower extremity edema, and concern for CHf exacerbation. his BNP was elevated and CXR showed CHF. he was started on lasix IV and monitored for diuresis. cardiology was consulted who recommended continuing diuresis which we did. He was able to be weaned off oxygen. he was sent home on a low dose of lasix 10-mg po qday with close follow up [facility] cardiology. Disposition home independent New medications lasix 10mg daily amiodarone 200 daily. I spent less than 30 minutes on the discharge of this patient.
--- NOTE | 2018-08-17 17:23 | SOAPPROG ---
[facility] Progress Note Assessment/Plan: 1. HOCM - Patient has a history of a hypertrophic obstructive cardiomyopathy. He is status post ICD for primary prevention. His last echocardiogram demonstrated no significant outflow tract gradient. His LVEF is 50%. 2. PAF - Patient has a history of paroxysmal atrial fibrillation. He is managed with a rhythm control and anticoagulation strategy. He is currently maintaining normal sinus rhythm with amiodarone and is anticoagulated with Coumadin. --> Continue current therapy. 3. CHF - Patient presented with diastolic congestive heart failure likely secondary to discontinuation of diuretic therapy approximately 1 month ago in the setting of renal insufficiency. Patient was treated with IV Lasix. His weight decreased from 88.6 kg to 84.6 kg. This is close to his baseline weight of 185 lb. Patient noted a significant improvement in his exertional dyspnea, abdominal distention, and lower extremity edema with this. --> Continue lasix 10 mg daily --> Chem 7 on 08/22 prior to visit with Dr. Rainey. --> Follow up Dr. Bedolla in 2 weeks. --> Consider decreasing AV delay on pacemaker. Subjective: No chest pain No orthopnea or PND Ambulating without difficulty Weight at baseline Objective: Vital Signs Temp Pulse Resp BP Pulse Ox 36.8 C 76 18 92/67 L 97 08/17/18 08:00 08/17/18 08:00 08/17/18 08:00 08/17/18 08:00 08/17/18 08:00 Laboratory Results 08/16/18 03:44 08/17/18 03:30 08/16/18 08/17/18 08/18/18 05:59 05:59 05:59 Intake Total 900 1120 400 Output Total 1700 1150 Balance -800 -30 400 PT 23.7 SEC (12.0-15.0) H 08/17/18 03:30 INR 2.24 (0.83-1.16) H 08/17/18 03:30 Physical Exam - Physical Exam General Appearance: alert, no apparent distress Respiratory: lungs clear Cardiac/Chest: regular rate, rhythm, diastolic murmur Abdomen: normal bowel sounds, non-tender, soft Extremities: pedal edema Neuro/Psych: alert, oriented x 3 ICD10 Worksheet Patient Problems: Problems Problem Status Onset Atrial tachycardia Acute CHF exacerbation Acute Chronic Disease Mgmt/Transitional Care Acute Dyspnea Acute Hypoxemia Acute Pulmonary hypertension Acute Shortness of breath Acute
== END 2018-08-17 14:24 | disposition home or self-care (01) ==
LOC: F2W 11:37
PROVIDERS: ADMIT Internal Medicine; ATTEND Internal Medicine
DX: J96.01 Acute respiratory failure with hypoxia (principal); I50.9 Heart failure, unspecified; I42.1 Obstructive hypertrophic cardiomyopathy; I12.9 Hypertensive chronic kidney disease with stage 1 through stage 4 chronic kidney disease, or unspecified chronic kidney disease; I48.0 Paroxysmal atrial fibrillation; N18.9 Chronic kidney disease, unspecified; I25.10 Atherosclerotic heart disease of native coronary artery without angina pectoris; E78.5 Hyperlipidemia, unspecified; G47.33 Obstructive sleep apnea (adult) (pediatric); Z95.810 Presence of automatic (implantable) cardiac defibrillator; Z90.5 Acquired absence of kidney; Z79.01 Long term (current) use of anticoagulants
CPT/HCPCS: 71046; 93005; 97161; 97165; G0378; G0379; J1940